=== PATIENT | female | born 1935 | race Two or more races ===

== ENCOUNTER → 2019-09-20 | Outpatient (CLI) | payer MEDICARE, BC ==
[2019-09-20 23:53] LABS: African American GFR (CKD) 53.4 (60.0-200.0); Albumin 3.9 g/dL (3.80-4.90); Albumin/Globulin Ratio 1.5 (1.60-3.17); Anion Gap 8.7 mmol/L (4.00-12.00); BUN/Creat Ratio 25.45 Ratio (12.00-20.00); Calcium 8.8 mg/dL (8.7-10.3); Carbon Dioxide 26.3 mmol/L (21.6-31.8); Globulin 2.6 g/dL (1.6-3.3); LDL Cholesterol,Calculated 25.6 mg/dL (0.0-131.0); Non-African American GFR(CKD) 46.1 (60.0-200.0); Total Bilirubin 1.2 mg/dL (0.3-1.2); Total Protein 6.5 g/dL (6.2-8.2); VLDL Calculation 13.4 mg/dL (5.00-40.00)
== END | disposition home or self-care (01) ==
LOC: LABWHC1 09:37
PROVIDERS: ATTEND Family Medicine
DX: E66.9 Obesity, unspecified (principal); R74.8 Abnormal levels of other serum enzymes
CPT/HCPCS: 36415; 80053; 80061; 82977

== ENCOUNTER → 2019-10-12 | Day surgery (SDC) | payer MEDICARE, BC ==
[2019-10-11 13:06] VITALS: BMI 33.4
[2019-10-12 10:17] VITALS: BP 141/65; PULSE 66; RESP 16; TEMP 97.8
== END ==
LOC: CATHCVL 09:45
PROVIDERS: ATTEND Internal Medicine Infectious Disease
DX: L97.929 Non-pressure chronic ulcer of unspecified part of left lower leg with unspecified severity (principal); I83.029 Varicose veins of left lower extremity with ulcer of unspecified site; Z16.12 Extended spectrum beta lactamase (ESBL) resistance; B96.20 Unspecified Escherichia coli [E. coli] as the cause of diseases classified elsewhere; B95.2 Enterococcus as the cause of diseases classified elsewhere; M19.90 Unspecified osteoarthritis, unspecified site; I11.0 Hypertensive heart disease with heart failure; I50.9 Heart failure, unspecified; E78.5 Hyperlipidemia, unspecified; E66.9 Obesity, unspecified; Z68.33 Body mass index [BMI] 33.0-33.9, adult; Z88.1 Allergy status to other antibiotic agents; Z88.8 Allergy status to other drugs, medicaments and biological substances; Z88.6 Allergy status to analgesic agent; Z79.899 Other long term (current) drug therapy; Z79.02 Long term (current) use of antithrombotics/antiplatelets; Z79.82 Long term (current) use of aspirin; Z79.51 Long term (current) use of inhaled steroids
CPT/HCPCS: 36410; 76937; C1751

== ENCOUNTER → 2019-11-03 | Outpatient (CLI) | payer MEDICARE, BC ==
[2019-11-03 19:31] LABS: African American GFR (CKD) 59.9 (60.0-200.0); Anion Gap 9.7 mmol/L (4.00-12.00); Calcium 8.6 mg/dL (8.7-10.3); Carbon Dioxide 27.3 mmol/L (21.6-31.8); Non-African American GFR(CKD) 51.7 (60.0-200.0)
[2019-11-03 23:22] LABS: INR 1.21 (0.90-1.11); Partial Thromboplastin Time 39.2 sec (24.7-29.9); Prothrombin Time 12.9 sec (9.9-11.9)
== END | disposition home or self-care (01) ==
LOC: LABWHC1 11:08
PROVIDERS: ATTEND Surgery Vascular Surgery
DX: L97.222 Non-pressure chronic ulcer of left calf with fat layer exposed (principal)
CPT/HCPCS: 36415; 80048; 85610; 85730

== ENCOUNTER 2022-11-10 12:24 | Emergency (ER) | payer MEDICARE, BC ==
--- NOTE | 2022-11-10 13:09 | ED ---
Recheck HPI - General Source: patient, RN notes reviewed Mode of arrival: wheelchair Limitations: no limitations <Ben Irving - Last Filed: 11/10/22 13:08> - General Source: patient, RN notes reviewed Mode of arrival: wheelchair Limitations: no limitations <Marlys Haley - Last Filed: 11/10/22 18:43> - General Chief Complaint: Recheck/Abnormal Lab/Rx Stated Complaint: POSS KIDNEY FAILURE/SENT BY PCP Time Seen by Provider: 11/10/22 13:08 - History of Present Illness Initial Comments: 87-year-old female presents emergency Department chief complaint of abnormal kidney function. Patient states she had laboratory drawn yesterday was notified stating that her kidney function was elevated. Patient denies any current complaints. Patient does state that her massage therapist recently placed her on Po tassium supplement. (Ben Irving) 87-year-old male presents to the emergency department with chief complaint of abnormal labs. She was sent in by her primary care provider for abnormal kidney function. She is unsure of the details on these lab values. She states that sh e is otherwise feeling well. Denies urinary retention, urinary frequency, burning with urination. Denies nausea, vomiting. Denies abdominal pain. (Marlys Haley) - Related Data Home Medications Medication Instructions Recorded Confirmed Aspirin 81 mg PO DAILY 10/11/19 11/10/22 Atorvastatin [Lipitor] 40 mg PO DAILY 10/11/19 11/10/22 Cetirizine HCl [Zyrtec] 10 mg PO DAILY PRN 10/11/19 11/10/22 Clopidogrel [Plavix] 75 mg PO DIRECTED 10/11/19 11/10/22 Ferrous Sulfate [Feosol] 325 mg PO DAILY 10/11/19 11/10/22 Fluticasone Nasal [place] [Flonase 1 spr EA NOSTRIL DAILY 10/11/19 11/10/22 Nasal Garrison] Losartan Potassium [Cozaar] 50 mg PO DAILY 10/11/19 11/10/22 Melatonin 5 mg PO HS PRN 10/11/19 11/10/22 Metoprolol Succinate [Toprol XL] 100 mg PO DAILY 10/11/19 11/10/22 Omeprazole [PriLOSEC] 40 mg PO BID 10/11/19 11/10/22 Potassium Chloride ER [K-Dur 20] 20 meq PO DAILY@1200 10/11/19 11/10/22 Bumetanide [BUMEX] 2 mg PO BID 11/10/22 11/10/22 Calcium Carbonate [Calcium] 600 mg PO DAILY 11/10/22 11/10/22 Chlorhexidine Gluconate [Peridex] 15 ml PO BID 11/10/22 11/10/22 calcitrioL [Calcitriol] 0.25 mcg PO Q14D 11/10/22 11/10/22 metOLazone [Zaroxolyn] 2.5 mg PO Q48H 11/10/22 11/10/22 Previous Rx's Medication Instructions Recorded Amoxic-Pot Clav 875-125Mg 1 tab PO Q12HR #10 tab 11/10/22 [Augmentin 875-125] Amoxic-Pot Clav 875-125Mg 1 tab PO Q12HR #10 tab 11/10/22 [Augmentin 875-125] Allergies Allergy/AdvReac Type Severity Reaction Status Date / Time cephalexin [From Keflex] Allergy Unknown Verified 11/10/22 16:50 ciprofloxacin [From Cipro] Allergy Unknown Verified 11/10/22 16:50 clarithromycin [From Biaxin] Allergy Nausea & Verified 11/10/22 16:50 Vomiting & Diarrhea codeine Allergy headache,vo Verified 11/10/22 16:50 miting,inso mnia rofecoxib [From Vioxx] Allergy Rash/Hives Verified 11/10/22 16:50 sulfamethoxazole Allergy Nausea & Verified 11/10/22 16:50 [From Bactrim] Vomiting Thiazides Allergy Unknown Verified 11/10/22 16:50 trimethoprim [From Bactrim] Allergy Nausea & Verified 11/10/22 16:50 Vomiting naldecon Allergy jittery Uncoded 10/11/19 12:31 Review of Systems ROS Other: All systems not noted in ROS Statement are negative. <Ben Irving - Last Filed: 11/10/22 13:08> ROS Other: All systems not noted in ROS Statement are negative. <Marlys Haley - Last Filed: 11/10/22 18:43> ROS Statement: Those systems with pertinent positive or pertinent negative responses have been documented in the HPI. Past Medical History Past Medical History: Atrial Fibrillation, Heart Failure, Deep Vein Thrombosis (DVT), GERD/Reflux, Hyperlipidemia, Hypertension, Myocardial Infarction (IL), Osteoarthritis (OA), Skin Disorder, Vascular Disorder Additional Past Medical History / Comment(s): sore/wound left inner calf of leg for last 2-3 months, fluid retention, "bad valves", DVT in leg >50 yrs. ago after childbirth Last Myocardial Infarction Date:: unknown History of Any Multi-Drug Resistant Organisms: None Reported Past Surgical History: AICD, Appendectomy, Back Surgery, Heart Catheterization With Stent, Hysterectomy, Joint Replacement Additional Past Surgical History / Comment(s): 6 stents total, LAILA, hemorrhoidectomy, vein stripping pedro. CTS pedro, cataracts removed, pedro knees replaced, pedro blepharoplasty Past Anesthesia/Blood Transfusion Reactions: No Reported Reaction, Family History of Problems w/ Anesthesia Additional Past Anesthesia/Blood Transfusion Reaction / Comment(s): sister had some kind of problem, not sure what Date of Last Stent Placement:: 2019 Type of Cardiac Device: AICD Device Placement Date:: 2019 Past Psychological History: No Psychological Hx Reported Smoking Status: Never smoker - Past Family History Mother Family Medical History: Coronary Artery Disease (CAD) <Ben Irving - Last Filed: 11/10/22 13:08> General Exam Limitations: no limitations General appearance: alert, in no apparent distress Head exam: Present: atraumatic, normocephalic, normal inspection <Ben Irving - Last Filed: 11/10/22 13:08> Limitations: no limitations General appearance: alert, in no apparent distress Head exam: Present: atraumatic, normocephalic, normal inspection Eye exam: Present: normal appearance, PERRL, EOMI. Absent: scleral icterus, conjunctival injection, periorbital swelling ENT exam: Present: normal exam, mucous membranes moist Neck exam: Present: normal inspection. Absent: tenderness, meningismus, lymp hadenopathy Respiratory exam: Present: normal lung sounds bilaterally. Absent: respiratory distress, wheezes, rales, rhonchi, stridor Cardiovascular Exam: Present: regular rate GI/Abdominal exam: Present: soft, normal bowel sounds. Absent: distended, tenderness, guarding, rebound, rigid Extremities exam: Present: normal inspection, full ROM, normal capillary refill. Absent: tenderness, pedal edema, joint swelling, calf tenderness Back exam: Present: normal inspection Neurological exam: Present: alert, oriented X3 Psychiatric exam: Present: normal affect, normal mood Skin exam: Present: warm, dry, intact, normal color. Absent: rash <Marlys Haley - Last Filed: 11/10/22 18:43> - General Exam Comments Initial Comments: Visual Physical Exam Vital signs reviewed General: Well-appearing, nontoxic, no acute distress. Head: Normocephalic, atraumatic Eyes: PERRLA, EOMI ENT: Airway patent Chest: Nonlabored breathing Skin: No visual rash, normal skin tone Neuro: Alert and oriented 3 Musculoskeletal: No gross abnormalities (Ben Irivng) Course Vital Signs 11/10/22 11/10/22 11/10/22 12:26 14:52 18:22 Temperature 97.6 F 97.7 F Pulse Rate 79 81 80 Respiratory 18 16 16 Rate Blood Pressure 127/64 128/86 128/82 O2 Sat by Pulse 96 98 98 Oximetry Medical Decision Making <Ben Irving - Last Filed: 11/10/22 13:08> - Lab Data Result diagrams: 11/10/22 14:10 11/10/22 14:53 <Marlys Haley - Last Filed: 11/10/22 18:43> - Medical Decision Making I performed a quick note portion of this chart signed Ben Irving PA-C (Ben Irving) Was pt. sent in by a medical professional or institution ([facility], [employer], urgent care, hospital, or [facility]...) When possible be specific @ -Patient was sent in by her primary care provider for abnormal lab values Did you speak to anyone other than the patient for history (EMS, parent, family, police, friend...)? What history was obtained from this source @ -No Did you review nursing and triage notes (agree or disagree)? Why? @ -I reviewed and agree with nursing and triage notes Were old charts reviewed (outside hosp., previous admission, EMS record, old EKG, old radiological studies, urgent care reports/EKG's, [facility] records)? Report findings @ -No old charts were reviewed Differential Diagnosis (chest pain, altered mental status, abdominal pain women, abdominal pain men, vaginal bleeding, weakness, fever, dyspnea, syncope, headache, dizziness, GI bleed, back pain, seizure, CVA, palpatations, mental health, musculoskeletal)? @ -not applicable EKG interpreted by me (3pts min.). @ -none X-rays interpreted by me (1pt min.). @ -None done CT interpreted by me (1pt min.). @ -None done U/S interpreted by me (1pt. min.). @ -None done What testing was considered but not performed or refused? (CT, X-rays, U/S, labs)? Why? @ -None What meds were considered but not given or refused? Why? @ -None Did you discuss the management of the patient with other professionals (professionals i.e. DrScarlett, PA, [employer], lab, RT, psych nurse, social security benefits interviewer, statistical modeler, teacher, mortgage loan officer, bottle caser)? Give summary @ -No Was smoking cessation discussed for >3mins.? @ -No Was critical care preformed (if so, how long)? @ -No Were there social determinants of health that impacted care today? How? (Homelessness, low income, unemployed, alcoholism, drug addiction, transportation, low edu. Level, literacy, decrease access to med. care, fci, rehab)? @ -No Was there de-escalation of care discussed even if they declined (Discuss DNR or withdrawal of care, Hospice)? DNR status @ -No What co-morbidities impacted this encounter? (DM, HTN, Smoking, COPD, CAD, Cancer, CVA, ARF, Chemo, Hep., AIDS, mental health diagnosis, sleep apnea, morbid obesity)? @ -None Was patient admitted / discharged? Hospital course, mention meds given and route, prescriptions, significant lab abnormalities, going to OR and other pertinent info. @ -discharged. Patient presented to emergency department for chief complaint of abnormal labs. Patient states that she had labs drawn at her primary care providers recently and had abnormal creatinine and BUN. She is unsure of the values of these at that time. She received a call and told her to come to the emergency department. Today her creatinine is 1.82 and her BUN is 75. Labs otherwise unremarkable. Chest x-ray obtained which shows no evidence of acute cardiopulmonary process. Discussed with patient that she should be observation in the hospital overnight for nephrology consult. She states that she follows c losely with the urologist and is refusing to stay in the hospital. Discussed the risks of discharge. She expresses understanding and would still like to be discharged. Discussed with her that she should get her labs checked again in the next 2-3 days and follow up closely with Dr. Riddle. Is stable at time of discharge. Case discussed with my attending, Dr. Bolden. Undiagnosed new problem with uncertain prognosis? @ -No Drug Therapy requiring intensive monitoring for toxicity (Heparin, Nitro, Insulin, Cardizem)? @ -No Were any procedures done? @ -No Diagnosis/symptom? @ -MARIAM Acute, or Chronic, or Acute on Chronic? @ -acute Uncomplicated (without systemic symptoms) or Complicated (systemic symptoms)? @ -uncomplicated Side effects of treatment? @ -No Exacerbation, Progression, or Severe Exacerbation? @ -No Poses a threat to life or bodily function? How? (Chest pain, USA, IL, pneumonia, PE, COPD, DKA, ARF, appy, cholecystitis, CVA, Diverticulitis, Homicidal, Kelly cidal, threat to staff... and all critical care pts) @ -No (Marlys Haley) - Lab Data Lab Results 11/10/22 11/10/22 11/10/22 Range/Units 14:10 14:53 14:53 WBC 4.7 (3.8-10.6) k/uL RBC 4.07 (3.80-5.40) m/uL Hgb 12.5 (11.4-16.0) gm/dL Hct 36.3 (34.0-46.0) % MCV 89.2 (80.0-100.0) fL MCH 30.8 (25.0-35.0) pg MCHC 34.5 (31.0-37.0) g/dL RDW 14.2 (11.5-15.5) % Plt Count 118 L (150-450) k/uL MPV 10.9 Neutrophils % 52 % Lymphocytes % 30 % Monocytes % 11 % Eosinophils % 5 % Basophils % 0 % Neutrophils # 2.5 (1.3-7.7) k/uL Lymphocytes # 1.4 (1.0-4.8) k/uL Monocytes # 0.5 (0-1.0) k/uL Eosinophils # 0.2 (0-0.7) k/uL Basophils # 0.0 (0-0.2) k/uL Sodium 137 (137-145) mmol/L Potassium 3.5 (3.5-5.1) mmol/L Chloride 98 (98-107) mmol/L Carbon Dioxide 30 (22-30) mmol/L Anion Gap 9 mmol/L BUN 75 H (7-17) mg/dL Creatinine 1.82 H (0.52-1.04) mg/dL Est GFR (CKD-EPI)AfAm 28 (>60 ml/min/1.73 sqM) Est GFR (CKD-EPI)NonAf 25 (>60 ml/min/1.73 sqM) Glucose 102 H (74-99) mg/dL Calcium 9.2 (8.4-10.2) mg/dL Magnesium 2.3 (1.6-2.3) mg/dL Total Bilirubin 0.9 (0.2-1.3) mg/dL AST 42 H (14-36) U/L ALT 19 (4-34) U/L Alkaline Phosphatase 85 (38-126) U/L Total Protein 7.1 (6.3-8.2) g/dL Albumin 4.3 (3.5-5.0) g/dL Urine Color Yellow Urine Appearance Clear (Clear) Urine pH 6.0 (5.0-8.0) Ur Specific Sterling 1.015 (1.001-1.035) Urine Protein Negative (Negative) Urine Glucose (UA) Negative (Negative) Urine Ketones Negative (Negative) Urine Blood Negative (Negative) Urine Nitrite Negative (Negative) Urine Bilirubin Negative (Negative) Urine Urobilinogen <2.0 (<2.0) mg/dL Ur Leukocyte Esterase Large H (Negative) Urine RBC <1 (0-5) /hpf Urine WBC 27 H (0-5) /hpf Ur Squamous Epith Cells 2 (0-4) /hpf Disposition <Ben Irving - Last Filed: 11/10/22 13:08> Is patient prescribed a controlled substance at d/c from ED?: No Time of Disposition: 18:01 <Marlys Haley - Last Filed: 11/10/22 18:43> Clinical Impression: UTI (urinary tract infection), MARIAM (acute kidney injury) Disposition: HOME SELF-CARE Condition: Stable Instructions (If sedation given, give patient instructions): Urinary Tract Infection in Women (ED) Additional Instructions: Please follow up with Dr. Riddle this week for lab recheck. Please return to the emergency department for new or worsening symptoms. Prescriptions: Amoxic-Pot Clav 875-125Mg [Augmentin 875-125] 1 tab PO Q12HR #10 tab Amoxic-Pot Clav 875-125Mg [Augmentin 875-125] 1 tab PO Q12HR #10 tab Referrals: Kendall Riddle MD [Primary Care Provider] - 1-2 days
[2022-11-10 14:16] LABS: Basophils % (A) 0 %; Eosinophils # (A) 0.2 k/uL (0-0.7); Eosinophils % (A) 5 %; HCT 36.3 % (34.0-46.0); HGB 12.5 gm/dL (11.4-16.0); Lymphocytes # (A) 1.4 k/uL (1.0-4.8); Lymphocytes % (A) 30 %; MCH 30.8 pg (25.0-35.0); MCHC 34.5 g/dL (31.0-37.0); MCV 89.2 fL (80.0-100.0); Mean Platelet Volume 10.9; Monocytes # (A) 0.5 k/uL (0-1.0); Monocytes % (A) 11 %; Neutrophils # (A) 2.5 k/uL (1.3-7.7); Neutrophils % (A) 52 %; Platelet Count 118 k/uL (150-450); RBC 4.07 m/uL (3.80-5.40); RDW 14.2 % (11.5-15.5); WBC 4.7 k/uL (3.8-10.6)
[2022-11-10 14:58] VITALS: RESP 16
[2022-11-10 15:28] LABS: Appearance,Urine Clear (Clear); Bilirubin,Urine Negative (Negative); Blood,Urine Negative (Negative); Color,Urine Yellow; Glucose,Urine (UA) Negative (Negative); Ketones,Urine Negative (Negative); Leukocyte Esterase,Urine Large (Negative); Nitrite,Urine Negative (Negative); Protein,Urine Negative (Negative); RBC,Urine <1 /hpf (0-5); Specific Gravity,Urine 1.015 (1.001-1.035); Squamous Epithelial Cell,Urine 2 /hpf (0-4); Urobilinogen,Urine <2.0 mg/dL (<2.0); WBC,Urine 27 /hpf (0-5)
[2022-11-10 17:12] LABS: ALT 19 U/L (4-34); AST 42 U/L (14-36); African American GFR (CKD) 28 (>60 ml/min/1.73 sqM); Albumin 4.3 g/dL (3.5-5.0); Alkaline Phosphatase 85 U/L (38-126); Anion Gap 9 mmol/L; Blood Urea Nitrogen 75 mg/dL (7-17); Calcium 9.2 mg/dL (8.4-10.2); Carbon Dioxide 30 mmol/L (22-30); Chloride 98 mmol/L (98-107); Glucose 102 mg/dL (74-99); Magnesium 2.3 mg/dL (1.6-2.3); Non-African American GFR(CKD) 25 (>60 ml/min/1.73 sqM); Potassium 3.5 mmol/L (3.5-5.1); Sodium 137 mmol/L (137-145); Total Bilirubin 0.9 mg/dL (0.2-1.3); Total Protein 7.1 g/dL (6.3-8.2)
--- NOTE | 2022-11-10 17:48 | XR ---
EXAMINATION TYPE: XR chest 2V DATE OF EXAM: 11/10/2022 COMPARISON: NONE HISTORY: Shortness of breath TECHNIQUE: Frontal and lateral views of the chest are obtained. FINDINGS: Scattered senescent parenchymal changes noted. No evidence for infiltrate. No evidence for atelectasis. Heart size is stable. Mediastinal structures are stable and grossly unremarkable. No evidence for hilar prominence. Degenerative changes dorsal spine. IMPRESSION: 1. No evidence for acute pulmonary disease.
[2022-11-10 18:23] VITALS: BP 128/82; PULSE 80; TEMP 97.7
== END 2022-11-10 18:23 | disposition home or self-care (01) ==
LOC: EC 12:24
DX: Z77.120 Contact with and (suspected) exposure to mold (toxic) (principal)
CPT/HCPCS: 36415; 71046; 80053; 81001; 83735; 85025; 87077; 87086; 87186; 99283

== ENCOUNTER 2023-05-24 12:49 | Inpatient (IN) | payer MEDICARE, BC ==
--- NOTE | 2023-05-24 13:00 | ED ---
General Adult HPI - General Chief complaint: Chest Pain Stated complaint: Chest Pain Time Seen by Provider: 05/24/23 12:49 Source: patient, EMS, RN notes reviewed, old records reviewed Mode of arrival: EMS Limitations: no limitations - History of Present Illness Initial comments: This is an 87-year-old female who presents to the emergency department stating that she is having some anterior chest pain she states is the same type of chest pain she had when she had her previous heart attack. Patient states she woke up with the pain and has been ongoing ever since. Patient states that the nitroglycerin did help her little but it is not gone away completely. Patient denies any diaphoresis patient denies shortness of breath patient [place] any radiation of the pain. Patient denies any recent fever chills but she states she has had a cough recently no sputum production. Patient denies headache patient has numbness weakness. - Related Data Home Medications Medication Instructions Recorded Confirmed Aspirin 81 mg PO DAILY 10/11/19 05/24/23 Atorvastatin [Lipitor] 40 mg PO DAILY 10/11/19 05/24/23 Cetirizine HCl [Zyrtec] 10 mg PO DAILY PRN 10/11/19 05/24/23 Clopidogrel [Plavix] 75 mg PO DAILY 10/11/19 05/24/23 Ferrous Sulfate [Feosol] 325 mg PO DAILY 10/11/19 05/24/23 Losartan Potassium [Cozaar] 50 mg PO DAILY 10/11/19 05/24/23 Metoprolol Succinate [Toprol XL] 100 mg PO DAILY 10/11/19 05/24/23 Omeprazole [PriLOSEC] 40 mg PO BID 10/11/19 05/24/23 Bumetanide [BUMEX] 2 mg PO BID 11/10/22 05/24/23 Calcium Carbonate [Calcium] 600 mg PO DAILY 11/10/22 05/24/23 Loratadine [Claritin] 10 mg PO DAILY PRN 05/24/23 05/24/23 Allergies Allergy/AdvReac Type Severity Reaction Status Date / Time cephalexin [From Keflex] Allergy Unknown Verified 05/24/23 14:23 ciprofloxacin [From Cipro] Allergy Unknown Verified 05/24/23 14:23 clarithromycin [From Biaxin] Allergy Nausea & Verified 05/24/23 14:23 Vomiting & Diarrhea codeine Allergy headache,vo Verified 05/24/23 14:23 miting,inso mnia hydrochlorothiazide Allergy Unknown Verified 05/24/23 14:23 [From Dyazide] rofecoxib [From Vioxx] Allergy Rash/Hives Verified 05/24/23 14:23 sulfamethoxazole Allergy Nausea & Verified 05/24/23 14:23 [From Bactrim] Vomiting Thiazides Allergy Unknown Verified 05/24/23 14:23 triamterene [From Dyazide] Allergy Unknown Verified 05/24/23 14:23 trimethoprim [From Bactrim] Allergy Nausea & Verified 05/24/23 14:23 Vomiting naldecon AdvReac jittery Uncoded 05/24/23 14:23 Review of Systems ROS Statement: Those systems with pertinent positive or pertinent negative responses have been documented in the HPI. ROS Other: All systems not noted in ROS Statement are negative. Past Medical History Past Medical History: Atrial Fibrillation, Heart Failure, Deep Vein Thrombosis (DVT), GERD/Reflux, Hyperlipidemia, Hypertension, Myocardial Infarction ([place]), Osteoarthritis (OA), Renal Disease, Skin Disorder, Vascular Disorder Additional Past Medical History / Comment(s): sore/wound left inner calf of leg for last 2-3 months, fluid retention, "bad valves", DVT in leg >50 yrs. ago after childbirth Last Myocardial Infarction Date:: unknown History of Any Multi-Drug Resistant Organisms: None Reported Past Surgical History: AICD, Appendectomy, Back Surgery, Heart Catheterization With Stent, Hysterectomy, Joint Replacement Additional Past Surgical History / Comment(s): 6 stents total, LAILA, hemorrhoidectomy, vein stripping pedro. CTS pedro, cataracts removed, pedro knees replaced, pedro blepharoplasty Past Anesthesia/Blood Transfusion Reactions: No Reported Reaction, Family History of Problems w/ Anesthesia Additional Past Anesthesia/Blood Transfusion Reaction / Comment(s): sister had some kind of problem, not sure what Date of Last Stent Placement:: 2019 Type of Cardiac Device: AICD Device Placement Date:: 2019 Past Psychological History: No Psychological Hx Reported Smoking Status: Never smoker Past Alcohol Use History: None Reported Past Drug Use History: None Reported - Past Family History Mother Family Medical History: Coronary Artery Disease (CAD) General Exam - General Exam Comments Initial Comments: GENERAL: Patient is well-developed and well-nourished. Patient is nontoxic and well- hydrated and is in mild distress. ENT: Neck is soft and supple. No significant lymphadenopathy is noted. Oropharynx is clear. Moist mucous membranes. Neck has full range of motion without eliciting any pain. EYES: The sclera were anicteric and conjunctiva were pink and moist. Extraocular movements were intact and pupils were equal round and reactive to light. Eyelids were unremarkable. PULMONARY: Unlabored respirations. Good breath sounds bilaterally. No audible rales rhonchi or wheezing was noted. CARDIOVASCULAR: There is a regular rate and rhythm without any murmurs gallops or rubs. ABDOMEN: Soft and nontender with normal bowel sounds. SKIN: Skin is clear with no lesions or rashes and otherwise unremarkable. NEUROLOGIC: Patient is alert and oriented x3. Cranial nerves II through XII are grossly intact. Motor and sensory are also intact. Normal speech, volume and content. Symmetrical smile. MUSCULOSKELETAL: Normal extremities with adequate strength and full range of motion. Patient has 1+ edema bilaterally LYMPHATICS: No significant lymphadenopathy is noted PSYCHIATRIC: Normal psychiatric evaluation. Limitations: no limitations Course Vital Signs 05/24/23 05/24/23 12:51 14:10 Temperature 98.1 F Pulse Rate 80 80 Respiratory 20 20 Rate Blood Pressure 168/86 136/89 O2 Sat by Pulse 100 100 Oximetry Medical Decision Making - Medical Decision Making EKG is interpreted by myself but EKG shows electronically ventricular paced rhyt hm at 80 beats a minute QRS is 146 QT interval is 486 QTc is 521. Was pt. sent in by a medical professional or institution ([facility], DROP WIRE OPERATOR, urgent care, hospital, or group home...) When possible be specific @ -No Did you speak to anyone other than the patient for history (EMS, parent, family, police, friend...)? What history was obtained from this source @ -No Did you review nursing and triage notes (agree or disagree)? Why? @ -I reviewed and agree with nursing and triage notes Were old charts reviewed (outside hosp., previous admission, EMS record, old EKG, old radiological studies, urgent care reports/EKG's, group home records)? Report findings @ -I reviewed prior charts and prior lab work on this patient Differential Diagnosis (chest pain, altered mental status, abdominal pain women, abdominal pain men, vaginal bleeding, weakness, fever, dyspnea, syncope, headache, dizziness, GI bleed, back pain, seizure, CVA, palpatations, mental health, musculoskeletal)? @ -Differential Chest Pain: Stable Angina, Unstable Angina, STEMI, NSTEMI Aortic Dissection, Pneumothorax, Musculoskeletal, Esophageal Spasm GERD, Cholecystitis, Pancreatitis, Zoster, this is not meant to be an all-inclusive list. EKG interpreted by me (3pts min.). @ -As above X-rays interpreted by me (1pt min.). @ -Chest x-ray shows no acute abnormality CT interpreted by me (1pt min.). @ -None done U/S interpreted by me (1pt. min.). @ -None done What testing was considered but not performed or refused? (CT, X-rays, U/S, labs)? Why? @ -None What meds were considered but not given or refused? Why? @ -None Did you discuss the management of the patient with other professionals (professionals i.e. , PA, DROP WIRE OPERATOR, lab, RT, psych nurse, social work coordinator, anodize machine operator, teacher, public service officer, rn case manager hospice)? Give summary @ -I spoke with [facility] they agreed admit the patient admit the patient with admitting or psych consult to cardiology Was smoking cessation discussed for >3mins.? @ -No Was critical care preformed (if so, how long)? @ -No Were there social determinants of health that impacted care today? How? (Homelessness, low income, unemployed, alcoholism, drug addiction, transportation, low edu. Level, literacy, decrease access to med. care, fpc, rehab)? @ -No Was there de-escalation of care discussed even if they declined (Discuss DNR or withdrawal of care, Hospice)? DNR status @ -No What co-morbidities impacted this encounter? (DM, HTN, Smoking, COPD, CAD, Cancer, CVA, ARF, Chemo, Hep., AIDS, mental health diagnosis, sleep apnea, morbid obesity)? @ -None Was patient admitted / discharged? Hospital course, mention meds given and route, prescriptions, significant lab abnormalities, going to OR and other pertinent info. @ -Patient had Nitropaste applied and stated that it took away her pain completely. Patient also has influenza A and I started on Tamiflu. I admitted to [facility] on the consult to cardiology Undiagnosed new problem with uncertain prognosis? @ -No Drug Therapy requiring intensive monitoring for toxicity (Heparin, Nitro, Insulin, Cardizem)? @ -No Were any procedures done? @ -No Diagnosis/symptom? @ -Chest pain Acute, or Chronic, or Acute on Chronic? @ -Acute Uncomplicated (without systemic symptoms) or Complicated (systemic symptoms)? @ -Complicated Side effects of treatment? @ -No Exacerbation, Progression, or Severe Exacerbation? @ -No Poses a threat to life or bodily function? How? (Chest pain, [place], [place], pneumonia, PE, COPD, DKA, ARF, appy, cholecystitis, CVA, Diverticulitis, Homicidal, Suicidal, threat to staff... and all critical care pts) @ -Yes this can lead to an [place] and endorgan dysfunction Diagnosis/symptom? @ -Influenza A Acute, or Chronic, or Acute on Chronic? @ -Acute Uncomplicated (without systemic symptoms) or Complicated (systemic symptoms)? @ -Uncomplicated Side effects of treatment? @ -None Exacerbation, Progression, or Severe Exacerbation] @ -No Poses a threat to life or bodily function? @ -No - Lab Data Result diagrams: 05/24/23 13:00 05/24/23 13:31 Lab Results 05/24/23 05/24/23 05/24/23 Range/Units 13:00 13:00 13:00 WBC 5.1 (3.8-10.6) k/uL RBC 3.94 (3.80-5.40) m/uL Hgb 11.6 (11.4-16.0) gm/dL Hct 36.3 (34.0-46.0) % MCV 92.2 (80.0-100.0) fL MCH 29.6 (25.0-35.0) pg MCHC 32.1 (31.0-37.0) g/dL RDW 16.9 H (11.5-15.5) % Plt Count 109 L (150-450) k/uL MPV 11.5 Neutrophils % (Manual) 67 % Lymphocytes % (Manual) 16 % Monocytes % (Manual) 15 % Eosinophils % (Manual) 2 % Neutrophils # (Manual) 3.42 (1.3-7.7) k/uL Lymphocytes # (Manual) 0.82 L (1.0-4.8) k/uL Monocytes # (Manual) 0.77 (0-1.0) k/uL Eosinophils # (Manual) 0.10 (0-0.7) k/uL Nucleated RBCs 0 (0-0) /100 WBC Manual Slide Review Performed Hypochromasia Slight Poikilocytosis Slight Anisocytosis Slight Ovalocytes Present PT 13.3 H (10.0-12.5) sec INR 1.3 H (<1.2) APTT 28.0 (22.0-30.0) sec Sodium (137-145) mmol/L Potassium (3.5-5.1) mmol/L Chloride (98-107) mmol/L Carbon Dioxide (22-30) mmol/L Anion Gap mmol/L BUN (7-17) mg/dL Creatinine (0.52-1.04) mg/dL Est GFR (CKD-EPI)AfAm (>60 ml/min/1.73 sqM) Est GFR (CKD-EPI)NonAf (>60 ml/min/1.73 sqM) Glucose (74-99) mg/dL Calcium (8.4-10.2) mg/dL Magnesium (1.6-2.3) mg/dL Total Bilirubin (0.2-1.3) mg/dL AST (14-36) U/L ALT (4-34) U/L Alkaline Phosphatase (38-126) U/L Troponin I (0.000-0.034) ng/mL Total Protein (6.3-8.2) g/dL Albumin (3.5-5.0) g/dL Influenza Type A (PCR) Detected A (Not Detectd) Influenza Type B (PCR) Not Detected (Not Detectd) RSV (PCR) Not Detected (Not Detectd) SARS-CoV-2 (PCR) Not Detected (Not Detectd) 05/24/23 05/24/23 Range/Units 13:31 13:31 WBC (3.8-10.6) k/uL RBC (3.80-5.40) m/uL Hgb (11.4-16.0) gm/dL Hct (34.0-46.0) % MCV (80.0-100.0) fL MCH (25.0-35.0) pg MCHC (31.0-37.0) g/dL RDW (11.5-15.5) % Plt Count (150-450) k/uL MPV Neutrophils % (Manual) % Lymphocytes % (Manual) % Monocytes % (Manual) % Eosinophils % (Manual) % Neutrophils # (Manual) (1.3-7.7) k/uL Lymphocytes # (Manual) (1.0-4.8) k/uL Monocytes # (Manual) (0-1.0) k/uL Eosinophils # (Manual) (0-0.7) k/uL Nucleated RBCs (0-0) /100 WBC Manual Slide Review Hypochromasia Poikilocytosis Anisocytosis Ovalocytes PT (10.0-12.5) sec INR (<1.2) APTT (22.0-30.0) sec Sodium 140 (137-145) mmol/L Potassium 3.2 L (3.5-5.1) mmol/L Chloride 105 (98-107) mmol/L Carbon Dioxide 25 (22-30) mmol/L Anion Gap 10 mmol/L BUN 21 H (7-17) mg/dL Creatinine 1.04 (0.52-1.04) mg/dL Est GFR (CKD-EPI)AfAm 56 (>60 ml/min/1.73 sqM) Est GFR (CKD-EPI)NonAf 49 (>60 ml/min/1.73 sqM) Glucose 93 (74-99) mg/dL Calcium 8.7 (8.4-10.2) mg/dL Magnesium 1.7 (1.6-2.3) mg/dL Total Bilirubin 2.1 H (0.2-1.3) mg/dL AST 51 H (14-36) U/L ALT 18 (4-34) U/L Alkaline Phosphatase 86 (38-126) U/L Troponin I 0.043 H* (0.000-0.034) ng/mL Total Protein 6.5 (6.3-8.2) g/dL Albumin 3.9 (3.5-5.0) g/dL Influenza Type A (PCR) (Not Detectd) Influenza Type B (PCR) (Not Detectd) RSV (PCR) (Not Detectd) SARS-CoV-2 (PCR) (Not Detectd) Disposition Clinical Impression: Chest pain, Influenza A Disposition: ADMITTED IP TO THIS HOSP Referrals: Kendall Riddle MD [Primary Care Provider] - 1-2 days Time of Disposition: 15:17
[2023-05-24] MEDS: NITROGLYCERIN OINT 1 INCH/GM PACKET TOPICAL STA (13:06)
[2023-05-24 13:11] LABS: Anisocytosis Slight; HCT 36.3 % (34.0-46.0); HGB 11.6 gm/dL (11.4-16.0); Hypochromasia Slight; MCH 29.6 pg (25.0-35.0); MCHC 32.1 g/dL (31.0-37.0); MCV 92.2 fL (80.0-100.0); Mean Platelet Volume 11.5; Platelet Count 109 k/uL (150-450); Poikilocytosis Slight; RBC 3.94 m/uL (3.80-5.40); RDW 16.9 % (11.5-15.5); WBC 5.1 k/uL (3.8-10.6)
--- NOTE | 2023-05-24 13:26 | XR ---
EXAMINATION TYPE: XR chest 2V DATE OF EXAM: 05/24/2023 1:20 PM CLINICAL INDICATION:Female, 87 years old with history of Chest Pain; COMPARISON: Chest radiographs from 11/10/2022 TECHNIQUE: XR chest 2V Frontal and lateral views of the chest. FINDINGS: Lungs/Pleura: There is no evidence of pleural effusion, focal consolidation, or pneumothorax. Pulmonary vascularity: Unremarkable. Heart/mediastinum: Cardiomediastinal silhouette is enlarged and stable. Atherosclerotic calcificatio ns are seen in the aorta. Three lead cardiac conduction device overlying the left hemithorax with dee dee d tips projecting over the right ventricle, right atrium and coronary sinus. Musculoskeletal: No acute osseous pathology. IMPRESSION: Cardiomegaly correlate with serum BNP for congestive heart failure. Otherwise no acute processes defi nitively visualized.
[2023-05-24 13:43] LABS: INR 1.3 (<1.2); Prothrombin Time 13.3 sec (10.0-12.5)
[2023-05-24 13:54] LABS: Lymphocytes # (M) 0.82 k/uL (1.0-4.8); Monocytes # (M) 0.77 k/uL (0-1.0); Neutrophils # (M) 3.42 k/uL (1.3-7.7); Neutrophils % (M) 67 %; Nucleated Red Blood Cells 0 /100 WBC (0-0); Total Cells Counted 100
[2023-05-24 13:56] LABS: Ovalocytes Present
[2023-05-24 14:03] LABS: ALT 18 U/L (4-34); AST 51 U/L (14-36); African American GFR (CKD) 56 (>60 ml/min/1.73 sqM); Albumin 3.9 g/dL (3.5-5.0); Alkaline Phosphatase 86 U/L (38-126); Anion Gap 10 mmol/L; Blood Urea Nitrogen 21 mg/dL (7-17); Calcium 8.7 mg/dL (8.4-10.2); Carbon Dioxide 25 mmol/L (22-30); Chloride 105 mmol/L (98-107); Glucose 93 mg/dL (74-99); Magnesium 1.7 mg/dL (1.6-2.3); Non-African American GFR(CKD) 49 (>60 ml/min/1.73 sqM); Sodium 140 mmol/L (137-145); Total Bilirubin 2.1 mg/dL (0.2-1.3); Total Protein 6.5 g/dL (6.3-8.2)
[2023-05-24 14:17] LABS: Potassium 3.2 mmol/L (3.5-5.1)
[2023-05-24] MEDS ORDERED: OSELTAMIVIR 75 MG CAP PO STA (15:15)
[2023-05-24] MEDS ORDERED: NITROGLYCERIN SL TABS 0.4 MG TAB SUBLINGUAL PRN (15:18)
[2023-05-24] MEDS: OSELTAMIVIR 30 MG CAP PO STA (15:57)
[2023-05-24] MEDS: ACETAMINOPHEN TAB 325 MG TAB PO PRN (18:36)
[2023-05-24] MEDS: NITROGLYCERIN OINT 1 INCH/GM PACKET TOPICAL SCH (18:40)
[2023-05-24] MEDS: ATORVASTATIN 40 MG TAB PO SCH (21:33)
[2023-05-24] MEDS: PANTOPRAZOLE 40 MG TABLET PO SCH (21:33)
[2023-05-24] MEDS: POTASSIUM CHLORIDE ER 20 MEQ TAB.ER PO STA (21:33)
[2023-05-24 23:49] LABS: African American GFR (CKD) 59 (>60 ml/min/1.73 sqM); Anion Gap 9 mmol/L; Blood Urea Nitrogen 22 mg/dL (7-17); Calcium 8.4 mg/dL (8.4-10.2); Carbon Dioxide 24 mmol/L (22-30); Chloride 107 mmol/L (98-107); Glucose 98 mg/dL (74-99); Non-African American GFR(CKD) 51 (>60 ml/min/1.73 sqM); Potassium 3.1 mmol/L (3.5-5.1); Sodium 140 mmol/L (137-145)
[2023-05-25] MEDS ORDERED: Potassium Replacement Protocol 1 EACH MISC MISCELLANE PRN ×2 (00:02→00:18)
--- NOTE | 2023-05-25 00:36 | P.HPIM ---
History of Present Illness H&P Date: 05/24/23 Chief Complaint: Chest pain Patient is a 87-year-old female with a known history of coronary artery disease with stent placement x 6 total, atrial fibrillation not on anticoagulation at home, history of DVT, hypertension, hyperlipidemia, history of [place] and osteoarthritis chronic CHF, status post ICD placement in March 2019 presents to ER with complaints of chest pain. Patient states that she has been having flulike symptoms and significant cough for the past 2 days. Today morning she started having chest discomfort/pain and she woke up from sleep and has been consistent since then. EMS was called and patient was given nitro en route to the ER. Patient states that her pain seems to improve with nitro and was placed on nitro paste placed in the ER. Patient was having cough but without any sputum production.. Mild shortness of breath. No associated nausea or vomiting. No diaphoresis. No radiation of the pain. Denies any fever or chills. Patient does have chronic lower extremity swelling. Chest x-ray showed cardiomegaly correlate with serum BNP for congestive heart failure. Otherwise no acute process definitively visualized. EKG showed electronic ventricular pacemaker. Patient was found to have uncontrolled blood pressure on admission with SBP 16 8/86 and pulse 80 respiration 20 and pulse ox 100% on room air. Laboratory data showed sodium 140 potassium 3.2 chloride 105 bicarbonate 25 BUN 21 creatinine 1.04 Total bili 2.1 AST 51 ALT 18 alk phos 86 Troponin 0.043, 0.048 and 0.062 Influenza A detected. Review of Systems Constitutional: Patient denies any fever or chills . Patient does have generalized weakness. No weight loss. Abdomen: Patient denied nausea vomiting and diarrhea and abdominal pain. Cardiovascular: Patient did complain of chest pain and minimal shortness of breath no palpitations. No worsening leg swelling Respiratory: patient does have cough without sputum production. Minimal shortness of breath Neurologic: Patient denied any numbness or tingling headache. Musculoskeletal: Patient denies any complaints of joint swelling or deformity. Skin: Negative Psychiatric: Negative Endocrine: No heat or cold intolerance. No recent weight gain. Genitourinary: No dysuria or hematuria. All other 14 point ROS negative except the above Past Medical History Past Medical History: Atrial Fibrillation, Heart Failure, Deep Vein Thrombosis (DVT), GERD/Reflux, Hyperlipidemia, Hypertension, Myocardial Infarction ([place]), Osteoarthritis ([place]), Renal Disease, Skin Disorder, Vascular Disorder Additional Past Medical History / Comment(s): sore/wound left inner calf of leg for last 2-3 months, fluid retention, "bad valves", DVT in leg >50 yrs. ago after childbirth Last Myocardial Infarction Date:: unknown History of Any Multi-Drug Resistant Organisms: None Reported Past Surgical History: AICD, Appendectomy, Back Surgery, Heart Catheterization With Stent, Hysterectomy, Joint Replacement Additional Past Surgical History / Comment(s): 6 stents total, LAILA, hemorrhoidectomy, vein stripping pedro. CTS pedro, cataracts removed, pedro knees rep laced, pedro blepharoplasty Past Anesthesia/Blood Transfusion Reactions: No Reported Reaction, Family History of Problems w/ Anesthesia Additional Past Anesthesia/Blood Transfusion Reaction / Comment(s): sister had some kind of problem, not sure what Date of Last Stent Placement:: 2019 Type of Cardiac Device: AICD Device Placement Date:: 2019 Past Psychological History: No Psychological Hx Reported Smoking Status: Never smoker Past Alcohol Use History: None Reported Past Drug Use History: None Reported - Past Family History Mother Family Medical History: Coronary Artery Disease (CAD) Medications and Allergies Home Medications Medication Instructions Recorded Confirmed Type Aspirin 81 mg PO DAILY 10/11/19 05/24/23 History Atorvastatin [Lipitor] 40 mg PO DAILY 10/11/19 05/24/23 History Cetirizine HCl [Zyrtec] 10 mg PO DAILY PRN 10/11/19 05/24/23 History Clopidogrel [Plavix] 75 mg PO DAILY 10/11/19 05/24/23 History Ferrous Sulfate [Feosol] 325 mg PO DAILY 10/11/19 05/24/23 History Losartan Potassium [Cozaar] 50 mg PO DAILY 10/11/19 05/24/23 History Metoprolol Succinate [Toprol XL] 100 mg PO DAILY 10/11/19 05/24/23 History Omeprazole [PriLOSEC] 40 mg PO BID 10/11/19 05/24/23 History Bumetanide [BUMEX] 2 mg PO BID 11/10/22 05/24/23 History Calcium Carbonate [Calcium] 600 mg PO DAILY 11/10/22 05/24/23 History Loratadine [Claritin] 10 mg PO DAILY PRN 05/24/23 05/24/23 History Allergies Allergy/AdvReac Type Severity Reaction Status Date / Time cephalexin [From Keflex] Allergy Unknown Verified 05/24/23 14:23 ciprofloxacin [From Cipro] Allergy Unknown Verified 05/24/23 14:23 clarithromycin [From Biaxin] Allergy Nausea & Verified 05/24/23 14:23 Vomiting & Diarrhea codeine Allergy headache,vo Verified 05/24/23 14:23 miting,inso mnia hydrochlorothiazide Allergy Unknown Verified 05/24/23 14:23 [From Dyazide] rofecoxib [From Vioxx] Allergy Rash/Hives Verified 05/24/23 14:23 sulfamethoxazole Allergy Nausea & Verified 05/24/23 14:23 [From Bactrim] Vomiting Thiazides Allergy Unknown Verified 05/24/23 14:23 triamterene [From Dyazide] Allergy Unknown Verified 05/24/23 14:23 trimethoprim [From Bactrim] Allergy Nausea & Verified 05/24/23 14:23 Vomiting naldecon AdvReac jittery Uncoded 05/24/23 14:23 Physical Exam Vitals: Vital Signs Temp Pulse Resp BP Pulse Ox 05/24/23 19:40 80 15 107/59 98 05/24/23 18:33 97.8 F 80 22 147/82 100 05/24/23 16:03 80 20 161/86 99 05/24/23 14:10 80 20 136/89 100 05/24/23 12:51 98.1 F 80 20 168/86 100 Intake and Output 05/24/23 05/24/23 05/24/23 06:59 14:59 22:59 Other: Weight 72.121 kg PHYSICAL EXAMINATION: Patient is lying in the bed comfortably, no acute distress, awake alert and oriented.. HEENT: Normocephalic. Neck is supple. Pupils reactive. Nostrils clear. Oral cavity is moist. Neck reveals no JVD, carotid bruits, or thyromegaly. CHEST EXAMINATION: Trachea is central. Symmetrical expansion. Bibasilar diminished sounds. No wheezing or rhonchi.. CARDIAC: Normal S1, S2 with no gallops. No murmurs ABDOMEN: Soft. Bowel sounds normal. No organomegaly. No abdominal bruits. Extremities: Bilateral lower extremity 2+ edema. No clubbing or cyanosis Neurologically awake, alert, oriented x3 with well-coordinated movements. No focal deficits noted Skin: No rash or skin lesions. Psychiatric: Coperative. Nonsuicidal Musculoskeletal: No joint swelling or deformity. Normal range of motion. Results CBC & Chem 7: 05/25/23 07:18 05/25/23 07:18 Labs: Abnormal Lab Results - Last 24 Hours (Table) 05/24/23 05/24/23 05/24/23 Range/Units 13:00 13:00 13:00 RDW 16.9 H (11.5-15.5) % Plt Count 109 L (150-450) k/uL Lymphocytes # (Manual) 0.82 L (1.0-4.8) k/uL PT 13.3 H (10.0-12.5) sec INR 1.3 H (<1.2) Potassium (3.5-5.1) mmol/L BUN (7-17) mg/dL Total Bilirubin (0.2-1.3) mg/dL AST (14-36) U/L Troponin I (0.000-0.034) ng/mL Influenza Type A (PCR) Detected A (Not Detectd) 05/24/23 05/24/23 05/24/23 Range/Units 13:31 13:31 16:02 RDW (11.5-15.5) % Plt Count (150-450) k/uL Lymphocytes # (Manual) (1.0-4.8) k/uL PT (10.0-12.5) sec INR (<1.2) Potassium 3.2 L (3.5-5.1) mmol/L BUN 21 H (7-17) mg/dL Total Bilirubin 2.1 H (0.2-1.3) mg/dL AST 51 H (14-36) U/L Troponin I 0.043 H* 0.048 H* (0.000-0.034) ng/mL Influenza Type A (PCR) (Not Detectd) Thrombosis Risk Factor Assmnt - DVT/VTE Prophylaxis DVT/VTE Prophylaxis: Pharmacologic Prophylaxis ordered Assessment and Plan Assessment: Acute influenza A infection Chest pain along with elevated troponin level. Possible NSTEMI Uncontrolled hypertension Coronary artery disease history of prior stent placement x 6 total Chronic CHF with likely systolic dysfunction. Status post ICD placed in 2019 Hyperlipidemia History of DVT Osteoarthritis DVT prophylaxis heparin subcu GI prophylaxis with PPI Plan: Patient will be continued on telemetry. Follow-up serial EKG and troponin x 3. Will be started back on aspirin Plavix and atorvastatin Patient was started back on metoprolol and monitor blood pressure closely. Continue with Bumex as per home regimen. Symptomatic management for cough. Patient was also started on Tamiflu 30 mg daily x 5 doses Replace electrolytes. Cardiology was consulted for further evaluation. Prognosis guarded nephrology medical problems and comorbid conditions. Discussed with patient family in detail at bedside. Time with Patient: Greater than 30
[2023-05-25] MEDS: POTASSIUM CHLORIDE ER 20 MEQ TAB.ER PO SCH (01:01)
[2023-05-25 08:23] LABS: Anisocytosis Slight; Basophils % (A) 1 %; Eosinophils # (A) 0.1 k/uL (0-0.7); Eosinophils % (A) 2 %; HCT 35.3 % (34.0-46.0); HGB 11.4 gm/dL (11.4-16.0); Hypochromasia Slight; Lymphocytes % (A) 19 %; MCH 30.2 pg (25.0-35.0); MCHC 32.1 g/dL (31.0-37.0); Monocytes # (A) 0.6 k/uL (0-1.0); Monocytes % (A) 11 %; Neutrophils # (A) 3.3 k/uL (1.3-7.7); Neutrophils % (A) 64 %; RBC 3.76 m/uL (3.80-5.40); RDW 17.1 % (11.5-15.5); WBC 5.1 k/uL (3.8-10.6)
[2023-05-25 08:49] LABS: African American GFR (CKD) 57 (>60 ml/min/1.73 sqM); Anion Gap 9 mmol/L; Blood Urea Nitrogen 21 mg/dL (7-17); Calcium 8.9 mg/dL (8.4-10.2); Carbon Dioxide 26 mmol/L (22-30); Chloride 107 mmol/L (98-107); Glucose 93 mg/dL (74-99); Non-African American GFR(CKD) 50 (>60 ml/min/1.73 sqM); Potassium 3.8 mmol/L (3.5-5.1); Sodium 142 mmol/L (137-145)
[2023-05-25 08:54] LABS: NT-Pro-B-Type Natriuretic Pept 7080 pg/mL
[2023-05-25] MEDS ORDERED: POTASSIUM CHLORIDE ER 20 MEQ TAB.ER PO SCH ×2 (09:00→23:59)
[2023-05-25] MEDS ORDERED: ASPIRIN 325 MG TAB PO SCH (09:00)
[2023-05-25] MEDS: ASPIRIN 81 MG PO SCH (09:29)
[2023-05-25] MEDS: LOSARTAN 50 MG TAB PO SCH (09:30)
[2023-05-25] MEDS: OSELTAMIVIR 30 MG CAP PO SCH (09:30)
[2023-05-25] MEDS: METOPROLOL SUCCINATE (ER) 100 MG TAB.ER.24H PO SCH (09:30)
[2023-05-25] MEDS: BUMETANIDE 1 MG TAB PO SCH (09:30)
[2023-05-25] MEDS: CLOPIDOGREL 75 MG TAB PO SCH (09:30)
--- NOTE | 2023-05-25 10:22 | P.CRDCN ---
History of Present Illness Consult date: 05/25/23 Consult reason: chest pain History of present illness: History of present illness: This is an 87-year-old female with past medical history of atrial fibrillation, bicuspid aortic valve, chronic systolic heart failure status post AICD 2019, history of myocardial infarction, coronary artery disease with previous stenting (7stents per patient), DVT, gastroesophageal reflux disease, hypertension, hyperlipidemia. Patient has follow-up with Dr. Byrne at [facility] but due to driving distance, she has made appointment with Dr. Geronimo on June 14. We have been asked to evaluate the patient for chest pain. On Wednesday, patient developed cough that was dry but it continued to worsen over the weekend and was significantly worse yesterday. She also did not feel right. She developed some nausea and dry heaves. She has chronic dyspnea on exertion which was worsened. She has right lower extremity edema. No dizziness, no palpitations, she states she had the chest pain just above the defibrillator. It seemed to be a different chest pain that she had with her previous WI/stents. No change in her pain with deep breathing or coughing. She states it was a steady ache but is gone now. She has had no fever. No blood in her stools or urine. No history of stroke or seizures. No history of diabetes. She is not a smoker. Patient is seen today in the emergency center waiting for bed on the cardiac stepdown unit. Patient has been started on Tamiflu, isolation and potassium has been replaced. EKG ventricularly paced rhythm, sinus rhythm Chest x-ray: Cardiomegaly correlate for CHF. Otherwise no acute process. Platelet count 109, WBC 5.1, hemoglobin 11.6. INR 1.3. Sodium 140, potassium 3.1, chloride 107, CO2 24, BUN 22 creatinine 1. Total bilirubin 2.1, AST 51, ALT and alkaline phosphatase normal. Magnesium 1.7. Troponin 0.043, 0.048, 0.062. Influenza A detected. Influenza B, RSV, COVID-19 not detected. Home cardiac medications: Aspirin 81 mg daily, atorvastatin 40 mg daily, Bumex 2 mg twice daily, Plavix 75 mg daily, losartan 50 mg daily, Toprol-XL 100 mg daily. Review Of Systems: At the time of my exam: CONSTITUTIONAL: Denies fever or chills. HEENT: Denies blurred vision, vision changes, or eye pain. Denies hemoptysis CARDIOVASCULAR: Denies chest pain. Denies orthopnea. Denies PND. Denies palpitations RESPIRATORY: Denies shortness of breath. GASTROINTESTINAL: Denies abdominal pain. Denies nausea or vomiting. HEMATOLOGIC: Denies bleeding disorders. GENITOURINARY: Denies any blood in urine. SKIN: Denies pruitis. Denies rash. Physical examination: Gen: This is an 87-year-old female in no acute respiratory distress VS: reviewed blood pressure 178/86, heart rate 80, pulse ox 100% on 2 L nasal cannula, afebrile. HEENT: Head is atraumatic, normocephalic. Pupils equal, round. Sclerae is anicteric. NECK: Supple. No JVD. LUNGS: Mild expiratory wheeze. No intercostal retractions. HEART: Regular rate and rhythm. Systolic murmur. ABDOMEN: Soft No tenderness. EXTREMITIES: Mild bilateral pedal edema more so on the right. Varicose veins in the right. No calf tenderness. NEUROLOGICAL: Patient is awake, alert and oriented x3. Assessment: Influenza A Chronic systolic heart failure Elevated troponin most likely due to influenza A History of coronary artery disease with previous stenting Hypertension Hyperlipidemia Status post AICD Remote history of DVT Plan: Resume patient's home cardiac medications Continue influenza treatment Obtain 2-D echocardiogram and Doppler study to assess cardiac structure and function Obtain patient records from Dr. Byrne Further recommendations to follow based upon clinical course Thank you kindly for this consultation. Nurse practitioner note has been reviewed, I agree with documented findings and plan of care. Patient was seen and examined. Past Medical History Past Medical History: Atrial Fibrillation, Heart Failure, Deep Vein Thrombosis (DVT), GERD/Reflux, Hyperlipidemia, Hypertension, Myocardial Infarction ([place]), Osteoarthritis (OA), Renal Disease, Skin Disorder, Vascular Disorder Additional Past Medical History / Comment(s): sore/wound left inner calf of leg for last 2-3 months, fluid retention, "bad valves", DVT in leg >50 yrs. ago after childbirth Last Myocardial Infarction Date:: unknown History of Any Multi-Drug Resistant Organisms: None Reported Past Surgical History: AICD, Appendectomy, Back Surgery, Heart Catheterization With Stent, Hysterectomy, Joint Replacement Additional Past Surgical History / Comment(s): 6 stents total, LAILA, hemorrhoidectomy, vein stripping pedro. CTS pedro, cataracts removed, pedro knees replaced, pedro blepharoplasty Past Anesthesia/Blood Transfusion Reactions: No Reported Reaction, Family History of Problems w/ Anesthesia Additional Past Anesthesia/Blood Transfusion Reaction / Comment(s): sister had some kind of problem, not sure what Date of Last Stent Placement:: 2019 Type of Cardiac Device: AICD Device Placement Date:: 2019 Past Psychological History: No Psychological Hx Reported Smoking Status: Never smoker Past Alcohol Use History: None Reported Past Drug Use History: None Reported - Past Family History Mother Family Medical History: Coronary Artery Disease (CAD) Medications and Allergies Home Medications Medication Instructions Recorded Confirmed Type Aspirin 81 mg PO DAILY 10/11/19 05/24/23 History Atorvastatin [Lipitor] 40 mg PO DAILY 10/11/19 05/24/23 History Cetirizine HCl [Zyrtec] 10 mg PO DAILY PRN 10/11/19 05/24/23 History Clopidogrel [Plavix] 75 mg PO DAILY 10/11/19 05/24/23 History Ferrous Sulfate [Feosol] 325 mg PO DAILY 10/11/19 05/24/23 History Losartan Potassium [Cozaar] 50 mg PO DAILY 10/11/19 05/24/23 History Metoprolol Succinate [Toprol XL] 100 mg PO DAILY 10/11/19 05/24/23 History Omeprazole [PriLOSEC] 40 mg PO BID 10/11/19 05/24/23 History Bumetanide [BUMEX] 2 mg PO BID 11/10/22 05/24/23 History Calcium Carbonate [Calcium] 600 mg PO DAILY 11/10/22 05/24/23 History Loratadine [Claritin] 10 mg PO DAILY PRN 05/24/23 05/24/23 History Allergies Allergy/AdvReac Type Severity Reaction Status Date / Time cephalexin [From Keflex] Allergy Unknown Verified 05/24/23 14:23 ciprofloxacin [From Cipro] Allergy Unknown Verified 05/24/23 14:23 clarithromycin [From Biaxin] Allergy Nausea & Verified 05/24/23 14:23 Vomiting & Diarrhea codeine Allergy headache,vo Verified 05/24/23 14:23 miting,inso mnia hydrochlorothiazide Allergy Unknown Verified 05/24/23 14:23 [From Dyazide] rofecoxib [From Vioxx] Allergy Rash/Hives Verified 05/24/23 14:23 sulfamethoxazole Allergy Nausea & Verified 05/24/23 14:23 [From Bactrim] Vomiting Thiazides Allergy Unknown Verified 05/24/23 14:23 triamterene [From Dyazide] Allergy Unknown Verified 05/24/23 14:23 trimethoprim [From Bactrim] Allergy Nausea & Verified 05/24/23 14:23 Vomiting naldecon AdvReac jittery Uncoded 05/24/23 14:23 Physical Exam Vitals: Vital Signs Temp Pulse Pulse Resp BP BP Pulse Ox 05/25/23 07:28 98.0 F 80 20 178/86 100 05/25/23 03:06 98 F 81 14 132/92 100 05/24/23 22:43 97.8 F 80 14 144/79 95 05/24/23 19:40 80 15 107/59 98 05/24/23 18:33 97.8 F 80 22 147/82 100 05/24/23 16:03 80 20 161/86 99 05/24/23 14:10 80 20 136/89 100 05/24/23 12:51 98.1 F 80 20 168/86 100 Intake and Output 05/24/23 05/25/23 05/25/23 22:59 06:59 14:59 Other: # Voids 1 # Bowel Movements 1 Results 05/25/23 07:18 05/25/23 07:18 Cardiac Enzymes 05/24/23 05/24/23 05/24/23 Range/Units 13:31 13:31 16:02 AST 51 H (14-36) U/L Troponin I 0.043 H* 0.048 H* (0.000-0.034) ng/mL 05/24/23 Range/Units 20:21 AST (14-36) U/L Troponin I 0.062 H* (0.000-0.034) ng/mL Coagulation 05/24/23 Range/Units 13:00 PT 13.3 H (10.0-12.5) sec APTT 28.0 (22.0-30.0) sec CBC 05/24/23 Range/Units 13:00 WBC 5.1 (3.8-10.6) k/uL RBC 3.94 (3.80-5.40) m/uL Hgb 11.6 (11.4-16.0) gm/dL Hct 36.3 (34.0-46.0) % Plt Count 109 L (150-450) k/uL Comprehensive Metabolic Panel 05/24/23 05/24/23 Range/Units 13:31 22:58 Sodium 140 140 (137-145) mmol/L Potassium 3.2 L 3.1 L (3.5-5.1) mmol/L Chloride 105 107 (98-107) mmol/L Carbon Dioxide 25 24 (22-30) mmol/L BUN 21 H 22 H (7-17) mg/dL Creatinine 1.04 1.00 (0.52-1.04) mg/dL Glucose 93 98 (74-99) mg/dL Calcium 8.7 8.4 (8.4-10.2) mg/dL AST 51 H (14-36) U/L ALT 18 (4-34) U/L Alkaline Phosphatase 86 (38-126) U/L Total Protein 6.5 (6.3-8.2) g/dL Albumin 3.9 (3.5-5.0) g/dL Current Medications Generic Name Dose Route Start Last Admin Trade Name Freq PRN Reason Stop Dose Admin Acetaminophen 650 mg 05/24/23 17:57 05/24/23 18:36 Acetaminophen Tab 325 Mg Tab PO 650 mg Q4HR PRN Administration Fever and/ or Pain Aspirin 325 mg 05/25/23 09:00 Aspirin 325 Mg Tab PO DAILY [facility] Aspirin 81 mg 05/25/23 09:00 Aspirin 81 Mg PO DAILY [facility] Atorvastatin Calcium 40 mg 05/24/23 21:30 05/24/23 21:33 Atorvastatin 40 Mg Tab PO 40 mg HS PAUL Administration Clopidogrel Bisulfate 75 mg 05/25/23 09:00 Clopidogrel 75 Mg Tab PO DAILY [facility] Metoprolol Succinate 100 mg 05/25/23 09:00 Metoprolol Succinate (Er) 100 Mg Tab.Er.24h PO DAILY [facility] Miscellaneous Information 1 each 05/25/23 00:02 Potassium Replacement Protocol 1 Each Misc MISCELLANE DAILY PRN Per Protocol Protocol Miscellaneous Information 1 each 05/25/23 00:18 Potassium Replacement Protocol 1 Each Misc MISCELLANE DAILY PRN Per Protocol Protocol Nitroglycerin 0.4 mg 05/24/23 15:18 Nitroglycerin Sl Tabs 0.4 Mg Tab SUBLINGUAL Q5M PRN Chest Pain Nitroglycerin 1 inch 05/24/23 18:00 05/25/23 06:15 Nitroglycerin Oint 1 Inch/Gm Packet TOPICAL Not Given Q6HR PAUL Oseltamivir Phosphate 30 mg 05/25/23 09:00 Oseltamivir 30 Mg Cap PO 05/28/23 09:01 DAILY PAUL Protocol Pantoprazole Sodium 40 mg 05/24/23 21:30 05/25/23 06:00 Pantoprazole 40 Mg Tablet PO Not Given AC-BID [facility] Intake and Output 05/24/23 05/25/23 05/25/23 22:59 06:59 14:59 Other: # Voids 1 # Bowel Movements 1 05/24/23 13:00 05/24/23 22:58
[2023-05-25 11:09] LABS: Poikilocytosis (M) Present
[2023-05-25 11:10] LABS: Platelet Count 96 k/uL (150-450)
[2023-05-25] MEDS: guaiFENesin SYRUP 100MG/5ML 200 MG/10 ML CUP PO PRN (14:37)
[2023-05-25 21:06] LABS: Chol/HDL Ratio 1.91 Ratio; LDL Cholesterol,Calculated 21.3 mg/dL (0.0-131.0)
--- NOTE | 2023-05-26 09:00 | CA ---
Transthoracic Echo Report Name: Hetal Rod Age: 87 Gender: F : 1935 Exam Date: 05/25/2023 11:03 Exam Location: [facility] Ht (in): 60 Wt (lb): 159 Ordering Physician: Lisa Bose Attending/Referring Phys: [id number], Lidya [place] Operator Florence Whiteside RDCS Procedure CPT: Indications: LVF Cardiac Hx: Technical Quality: Contrast 1: Total Dose (mL): Contrast 2: Total Dose (mL): MEASUREMENTS (Male / Female) Normal Values 2D ECHO LV Diastolic Diameter PLAX 3.6 cm 4.2 - 5.9 / 3.9 - 5.3 cm LV Systolic Diameter PLAX 2.7 cm IVS Diastolic Thickness 1.2 cm 0.6 - 1.0 / 0.6 - 0.9 cm LVPW Diastolic Thickness 1.3 cm 0.6 - 1.0 / 0.6 - 0.9 cm LV Relative Wall Thickness 0.7 LVOT Diameter 1.8 cm Aortic Root Diameter 2.7 cm LA Systolic Diameter LX 4.1 cm 3.0 - 4.0 / 2.7 - 3.8 cm LA Volume 81.7 cm??? 18 - 58 / 22 - 52 cm??? LA Volume Index 46.0 cm???/m??? 16 - 28 cm???/m??? DOPPLER AV Peak Velocity 134.7 cm/s AV Peak Gradient 7.3 mmHg AV Mean Velocity 90.8 cm/s AV Mean Gradient 3.5 mmHg AV Velocity Time Integral 22.6 cm LVOT Peak Velocity 46.0 cm/s LVOT Peak Gradient 0.8 mmHg LVOT Velocity Time Integral 7.3 cm LVOT Stroke Volume 19.1 cm??? LVOT Stroke Volume Index 11.3 ml/m??? LVOT Cardiac Index 857.9 cm???/min???m??? AV Area Cont Eq vti 0.8 cm??? AV Area Cont Eq pk 0.9 cm??? MV Area PHT 4.4 cm??? MR Peak Velocity 549.0 cm/s MR Peak Gradient 120.6 mmHg Mitral E Point Velocity 141.3 cm/s Mitral A Point Velocity 45.9 cm/s Mitral E to A Ratio 3.1 MV Deceleration Time 170.8 ms MV E' Velocity 6.4 cm/s Mitral E to MV E' Ratio 22.1 TR Peak Velocity 284.3 cm/s TR Peak Gradient 32.3 mmHg Right Ventricular Systolic Press 50.8 mmHg PV Peak Velocity 55.4 cm/s PV Peak Gradient 1.2 mmHg FINDINGS Left Ventricle Mildly increased septal wall thickness. Mild concentric left ventricular hypertrophy. Left ventricular ejection fraction is estimated at 30-35 %. Right Ventricle Right ventricular dilatation. Right ventricular systolic pressure estimated at 59.76 mmhg. Right Atrium Pacemaker wire in the right atrial cavity. Left Atrium Mildly increased left atrial diameter. Severely increased left atrial volume. Mitral Valve Moderate to severe mitral regurgitation. Aortic Valve Trileaflet aortic valve. Thickened aortic valve without stenosis. Tricuspid Valve Moderate to severe tricuspid regurgitation Pulmonic Valve No pulmonic regurgitation. Pericardium No pericardial effusion. Aorta Normal size aortic root. CONCLUSIONS Technically difficult study was poorly visualized endocardium The LV systolic function is estimated to be 30-35% Moderate to severe mitral regurgitation Severe pulmonary hypertension Severe right ventricular dilation Moderate to severe tricuspid regurgitation Previewed by: Dr. Krish Geronimo MD (Electronically Signed) Final Date: 26 May 2023 08:59
[2023-05-26 09:54] LABS: Anisocytosis Slight; Basophils % (A) 1 %; Eosinophils # (A) 0.2 k/uL (0-0.7); Eosinophils % (A) 5 %; Hypochromasia Slight; Lymphocytes # (A) 1.1 k/uL (1.0-4.8); Lymphocytes % (A) 33 %; MCH 30.4 pg (25.0-35.0); MCHC 32.4 g/dL (31.0-37.0); MCV 93.9 fL (80.0-100.0); Mean Platelet Volume 10.3; Monocytes # (A) 0.4 k/uL (0-1.0); Monocytes % (A) 12 %; Neutrophils # (A) 1.6 k/uL (1.3-7.7); Neutrophils % (A) 46 %; RBC 3.62 m/uL (3.80-5.40); RDW 17.1 % (11.5-15.5); WBC 3.5 k/uL (3.8-10.6)
[2023-05-26 10:05] LABS: African American GFR (CKD) 49 (>60 ml/min/1.73 sqM); Anion Gap 9 mmol/L; Blood Urea Nitrogen 24 mg/dL (7-17); Calcium 8.5 mg/dL (8.4-10.2); Carbon Dioxide 26 mmol/L (22-30); Chloride 106 mmol/L (98-107); Glucose 125 mg/dL (74-99); Non-African American GFR(CKD) 43 (>60 ml/min/1.73 sqM); Potassium 3.1 mmol/L (3.5-5.1); Sodium 141 mmol/L (137-145)
[2023-05-26 10:16] LABS: Platelet Count 89 k/uL (150-450)
[2023-05-26] MEDS ORDERED: Potassium Replacement Protocol 1 EACH MISC MISCELLANE PRN (10:16)
--- NOTE | 2023-05-26 10:41 | P.PN ---
Subjective Progress Note Date: 05/26/23 Consult reason: chest pain History of present illness: This is an 87-year-old female with past medical history of atrial fibrillation, bicuspid aortic valve, chronic systolic heart failure status post AICD 2019, history of myocardial infarction, coronary artery disease with previous stenting (7stents per patient), DVT, gastroesophageal reflux disease, hypertension, hyperlipidemia. Patient has follow-up with Dr. Byrne at [facility] but due to driving distance, she has made appointment with Dr. Geronimo on June 14. We have been asked to evaluate the patient for chest pain. On Wednesday, patient developed cough that was dry but it continued to worsen over the weekend and was significantly worse yesterday. She also did not feel right. She developed some nausea and dry heaves. She has chronic dyspnea on exertion which was worsened. She has right lower extremity edema. No dizziness, no palpitations, she states she had the chest pain just above the defibrillator. It seemed to be a different chest pain that she had with her previous ME/stents. No change in her pain with deep breathing or coughing. She states it was a steady ache but is gone now. She has had no fever. No blood in her stools or urine. No history of stroke or seizures. No history of diabetes. She is not a smoker. Patient is seen today in the emergency center waiting for bed on the cardiac stepdown unit. Patient has been started on Tamiflu, isolation and potassium has been replaced. EKG ventricularly paced rhythm, sinus rhythm Chest x-ray: Cardiomegaly correlate for CHF. Otherwise no acute process. Platelet count 109, WBC 5.1, hemoglobin 11.6. INR 1.3. Sodium 140, potassium 3.1, chloride 107, CO2 24, BUN 22 creatinine 1. Total bilirubin 2.1, AST 51, ALT and alkaline phosphatase normal. Magnesium 1.7. Troponin 0.043, 0.048, 0.062. Influenza A detected. Influenza B, RSV, COVID-19 not detected. Home cardiac medications: Aspirin 81 mg daily, atorvastatin 40 mg daily, Bumex 2 mg twice daily, Plavix 75 mg daily, losartan 50 mg daily, Toprol-XL 100 mg daily. 05/25 Reviewed documents obtained from [facility], Dr. Vivek Byrne. Patient has a past medical history of chronic systolic and diastolic heart failure with LVEF 40%, moderate mitral regurgitation, severe tricuspid regurgitation, status post ICD on 04/18/2019 for secondary prevention of SCD with long QT. ICD was complicated by pericardial tamponade, effusion was drained. She has history of persistent A-fib with [id number] of 5. History of severe GI bleeding on Coumadin. Patient has not been interested in LAAO. History of coronary artery disease with stenting of the LAD and RCA at [facility] in 2005 followed by stenting of the RCA at [facility] in 2012, stenting of the RCA, PTCA diagonal at [facility] 08/21/2019. History of peripheral artery disease with CYNTHIA left SFA for nonhealing left calf ulcer 12/01/2019. Patient is seen today on the cardiac stepdown unit. She denies having any chest pain, no shortness of breath, no dizziness. She is complaining with cough and sputum production. Blood pressure 139 over 100% on 4 L nasal cannula. Repeat blood work today reveals BUN 24 creatinine 1.16, potassium 3.1, sodium 141. Echocardiogram reveals EF of 30 to 35%, moderate to severe mitral regurgitation, severe pulmonary hypertension, severe right ventricular dilation, moderate to severe tricuspid regurgitation. Physical examination: Gen: This is an 87-year-old female in no acute respiratory distress VS: reviewed blood pressure 178/86, heart rate 80, pulse ox 100% on 2 L nasal cannula, afebrile. HEENT: Head is atraumatic, normocephalic. Pupils equal, round. Sclerae is anicteric. NECK: Supple. No JVD. LUNGS: Mild expiratory wheeze. No intercostal retractions. HEART: Regular rate and rhythm. Holosystolic murmur with radiation to the neck ABDOMEN: Soft No tenderness. EXTREMITIES: Mild bilateral pedal edema more so on the right. Varicose veins in the right. No calf tenderness. NEUROLOGICAL: Patient is awake, alert and oriented x3. Assessment: Influenza A Chronic systolic and diastolic heart failure Elevated troponin most likely due to influenza A History of coronary artery disease with previous stenting Hypertension Hyperlipidemia Valvular heart disease with moderate to severe mitral regurgitation, moderate to severe tricuspid regurgitation Persistent atrial fibrillation History of severe GI bleeding on Coumadin Status post AICD Remote history of DVT Peripheral vascular disease Plan: Continue patient's home cardiac medications Continue influenza treatment Further recommendations to follow based upon clinical course Thank you kindly for this consultation. Nurse practitioner note has been reviewed, I agree with documented findings and plan of care. Patient was seen and examined. Objective - Vital Signs Vital signs: Vital Signs Temp 97.6 F 05/26/23 03:40 Pulse 80 05/26/23 08:00 Resp 20 05/26/23 08:00 BP 139/68 05/26/23 08:00 Pulse Ox 100 05/26/23 08:00 FiO2 Intake & Output 05/25/23 05/26/23 05/26/23 18:59 06:59 18:59 Intake Total 180 180 Balance 180 180 Weight 72.121 kg Intake: Oral 180 180 Other: Voiding Method Toilet Toilet # Voids 2 - Labs CBC & Chem 7: 05/25/23 07:18 05/25/23 07:18 Labs: Abnormal Lab Results - Last 24 Hours (Table) 05/25/23 05/25/23 Range/Units 07:18 07:18 RBC 3.76 L (3.80-5.40) m/uL RDW 17.1 H (11.5-15.5) % Plt Count 96 L (150-450) k/uL BUN 21 H (7-17) mg/dL
--- NOTE | 2023-05-26 10:53 | P.PN ---
Subjective Progress Note Date: 05/25/23 Patient is a 87-year-old female with a known history of coronary artery disease with stent placement x 6 total, atrial fibrillation not on anticoagulation at home, history of DVT, hypertension, hyperlipidemia, history of PR and osteoarthritis chronic CHF, status post ICD placement in March 2019 presents to ER with complaints of chest pain. Patient states that she has been having flulike symptoms and significant cough for the past 2 days. Today morning she started having chest discomfort/pain and she woke up from sleep and has been consistent since then. EMS was called and patient was given nitro en route to the ER. Patient states that her pain seems to improve with nitro and was placed on nitro paste placed in the ER. Patient was having cough but without any sputum production.. Mild shortness of breath. No associated nausea or vomiting. No diaphoresis. No radiation of the pain. Denies any fever or chills. Patient does have chronic lower extremity swelling. Chest x-ray showed cardiomegaly correlate with serum BNP for congestive heart failure. Otherwise no acute process definitively visualized. EKG showed electronic ventricular pacemaker. Patient was found to have uncontrolled blood pressure on admission with SBP 168/86 and pulse 80 respiration 20 and pulse ox 100% on room air. Laboratory data showed sodium 140 potassium 3.2 chloride 105 bicarbonate 25 BUN 21 creatinine 1.04 Total bili 2.1 AST 51 ALT 18 alk phos 86 Troponin 0.043, 0.048 and 0.062 Influenza A detected. 3 2023 Patient is currently resting in the bed. Awake alert and oriented x 3. No complaints of chest pain. Breathing status is better. Patient is on 4 L oxygen via nasal cannula. No nausea vomiting abdominal pain or diarrhea. Patient has been afebrile. Blood pressure is elevated with SBP's in 170s this morning. Patient is being continued Bumex and losartan and metoprolol. Also on Tamiflu. 2D echocardiogram was done and awaiting reports from other hospital. Cardiology is on board. Laboratory data showed WBC 5.1 hemoglobin 11.4 and platelets 96 Sodium 142 potassium 3.8 chloride 107 bicarb is 26 BUN 21 and creatinine 1.02 and [place] Elevated LDL 21.3 and proBNP 7080. Current medications reviewed. Objective - Vital Signs Vital signs: Vital Signs Temp 98.9 F 05/25/23 16:40 Pulse 74 05/25/23 16:40 Resp 18 05/25/23 16:40 BP 147/74 05/25/23 16:40 Pulse Ox 100 05/25/23 16:40 FiO2 Intake & Output 05/25/23 05/25/23 05/26/23 06:59 18:59 06:59 Intake Total 180 Balance 180 Weight 72.121 kg Intake: Oral 180 Other: Voiding Method Toilet # Voids 1 # Bowel Movements 1 - Exam PHYSICAL EXAMINATION: Patient is lying in the bed comfortably, no acute distress, awake alert and oriented.. HEENT: Normocephalic. Neck is supple. Pupils reactive. Nostrils clear. Oral cavity is moist. Neck reveals no JVD, carotid bruits, or thyromegaly. CHEST EXAMINATION: Trachea is central. Symmetrical expansion. No wheezing or rhonchi. Nonlabored breathing. CARDIAC: Normal S1, S2 with no gallops. Systolic murmur. ABDOMEN: Soft. Bowel sounds normal. No organomegaly. No abdominal bruits. Extremities: Trace bilateral pedal edema. No clubbing or cyanosis Neurologically awake, alert, oriented x3 with well-coordinated movements. No focal deficits noted Skin: No rash or skin lesions. Psychiatric: Coperative. Nonsuicidal Musculoskeletal: No joint swelling or deformity. Normal range of motion. - Labs CBC & Chem 7: 05/26/23 09:15 05/26/23 09:15 Labs: Abnormal Lab Results - Last 24 Hours (Table) 05/24/23 05/24/23 05/25/23 Range/Units 20:21 22:58 07:18 RBC (3.80-5.40) m/uL RDW (11.5-15.5) % Plt Count (150-450) k/uL Potassium 3.1 L (3.5-5.1) mmol/L BUN 22 H 21 H (7-17) mg/dL Troponin I 0.062 H* (0.000-0.034) ng/mL 05/25/23 Range/Units 07:18 RBC 3.76 L (3.80-5.40) m/uL RDW 17.1 H (11.5-15.5) % Plt Count 96 L (150-450) k/uL Potassium (3.5-5.1) mmol/L BUN (7-17) mg/dL Troponin I (0.000-0.034) ng/mL Assessment and Plan Assessment: Significant cough with acute influenza A infection Chest pain along with elevated troponin level. Likely due to acute influenza A infection. Uncontrolled hypertension Coronary artery disease history of prior stent placement x 6 total Chronic CHF with systolic and diastolic dysfunction. Status post ICD placed in 2019 Persistent atrial fibrillation. Not on anticoagulation due to severe GI bleed previously. Hyperlipidemia History of DVT Osteoarthritis DVT prophylaxis heparin subcu GI prophylaxis with PPI Plan: Patient will be continued on telemetry. Follow-up serial EKG and troponin x 3. proBNP 3080. Will be started back on aspirin Plavix and atorvastatin Patient was started back on metoprolol and monitor blood pressure closely. Continue with Bumex as per home regimen. Also losartan was added. Symptomatic management for cough. Patient was also started on Tamiflu 30 mg daily x 5 doses Replace electrolytes. Cardiology is on board. 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 Prognosis guarded due to multiple medical problems and comorbid conditions. Discussed with patient family in detail at bedside. Time with Patient: Greater than 30
[2023-05-26] MEDS: POTASSIUM CHLORIDE ER 20 MEQ TAB.ER PO SCH (14:41)
[2023-05-26] MEDS: ALBUTEROL NEBULIZED 2.5 MG/3 ML INHALATION SCH (21:27)
--- NOTE | 2023-05-27 05:15 | P.PN ---
Subjective Progress Note Date: 05/26/23 Patient is a 87-year-old female with a known history of coronary artery disease with stent placement x 6 total, atrial fibrillation not on anticoagulation at home, history of DVT, hypertension, hyperlipidemia, history of KS and osteoarthritis chronic CHF, status post ICD placement in March 2019 presents to ER with complaints of chest pain. Patient states that she has been having flulike symptoms and significant cough for the past 2 days. Today morning she started having chest discomfort/pain and she woke up from sleep and has been consistent since then. EMS was called and patient was given nitro en route to the ER. Patient states that her pain seems to improve with nitro and was placed on nitro paste placed in the ER. Patient was having cough but without any sputum production.. Mild shortness of breath. No associated nausea or vomiting. No diaphoresis. No radiation of the pain. Denies any fever or chills. Patient does have chronic lower extremity swelling. Chest x-ray showed cardiomegaly correlate with serum BNP for congestive heart failure. Otherwise no acute process definitively visualized. EKG showed electronic ventricular pacemaker. Patient was found to have uncontrolled blood pressure on admission with SBP 168/86 and pulse 80 respiration 20 and pulse ox 100% on room air. Laboratory data showed sodium 140 potassium 3.2 chloride 105 bicarbonate 25 BUN 21 creatinine 1.04 Total bili 2.1 AST 51 ALT 18 alk phos 86 Troponin 0.043, 0.048 and 0.062 Influenza A detected. 05/26/2023 Patient is seen in follow-up today with cardiology following. Patient is continued on Tamiflu for positive influenza A. Patient reports to feeling slightly improved and continues with some shortness of breath. Patient currently using oxygen for comfort although 100% on 4 L. Wean FiO2 as tolerated. Discussed with nursing staff and patient report she would like to continue with oxygen as she feels improved. Will evaluate patient off oxygen and monitor closely. Encouraged to increase activity as tolerated. Patient denies any chest pain or palpitations. Patient is afebrile. Will monitor overnight with possible discharge planning in 24 hours. Continue current cardiac medications. Review of systems: Constitutional: No reports of fatigue, fever, or chills Cardiovascular: No reports of chest pain or palpitations Respiratory: No reports of worsening shortness of breath, occasional cough GI: No reports of nausea, vomiting, or diarrhea : No reports of dysuria or retention Neurovascular: No reports of weakness or numbness All medications have been reviewed PHYSICAL EXAMINATION: Patient is lying in the bed comfortably, no acute distress, awake alert and oriented.. Well-developed, appears elderly, obese HEENT: Normocephalic. Neck is supple. Pupils reactive. Nostrils clear. Oral cavity is moist. Neck reveals no JVD, carotid bruits, or thyromegaly. CHEST EXAMINATION: Trachea is central. Symmetrical expansion. Bibasilar diminished sounds. Faint expiratory wheezing noted. CARDIAC: Normal S1, S2 with no gallops. No murmurs ABDOMEN: Soft. Bowel sounds normal. No organomegaly. No abdominal bruits. Extremities: Bilateral lower extremity 2+ edema. Slightly improved from admission, no clubbing or cyanosis Neurologically awake, alert, oriented x3 with well-coordinated movements. No focal deficits noted Skin: No rash or skin lesions. Psychiatric: Cooperative. Non-suicidal Musculoskeletal: No joint swelling or deformity. Normal range of motion. Assessment: Acute influenza A infection Chest pain along with elevated troponin level. Possible NSTEMI Uncontrolled hypertension Coronary artery disease history of prior stent placement x 6 total Chronic CHF with likely systolic dysfunction. Status post ICD placed in 2019 Hyperlipidemia History of DVT Osteoarthritis Obesity with a BMI 31.1 DVT prophylaxis heparin subcu GI prophylaxis with PPI Full code Plan: Patient will be continued on telemetry. Follow-up serial EKG and troponin x 3. Continue aspirin Plavix and atorvastatin Home medications reviewed and resumed. Cardiology following and will continue Bumex twice daily Symptomatic management for cough. Patient was also started on Tamiflu 30 mg daily x 5 doses Encouraged to increase activity as tolerated Due to multiple complex medical issues, prognosis is guarded Possible discharge planning in the next 24 hours The impression and plan of care has been dictated by Shelly Gonzalez, Nurse Practitioner as directed. Dr. Torsten MD I have performed a history and examination and MDM of this patient, discussed the same with the dictator, and agree with the dictator's assessment and plan as written ,documented as a scribe. Based on total visit time, I have performed more than 50% of the visit. Objective - Vital Signs Vital signs: Vital Signs Temp 97.6 F 05/26/23 03:40 Pulse 80 05/26/23 08:00 Resp 20 05/26/23 08:00 BP 139/68 05/26/23 08:00 Pulse Ox 100 05/26/23 08:00 FiO2 Intake & Output 05/25/23 05/26/23 05/26/23 18:59 06:59 18:59 Intake Total 180 180 Balance 180 180 Weight 72.121 kg Intake: Oral 180 180 Other: Voiding Method Toilet Toilet # Voids 2 - Labs CBC & Chem 7: 05/26/23 09:15 05/26/23 09:15 Labs: Abnormal Lab Results - Last 24 Hours (Table) 05/25/23 05/26/23 Range/Units 07:18 09:15 Plt Count 96 L (150-450) k/uL Potassium 3.1 L (3.5-5.1) mmol/L BUN 24 H (7-17) mg/dL Creatinine 1.16 H (0.52-1.04) mg/dL Glucose 125 H (74-99) mg/dL
--- NOTE | 2023-05-27 09:50 | P.PN ---
Subjective HISTORY OF PRESENT ILLNESS: This is an 87-year-old female with past medical history of atrial fibrillation, bicuspid aortic valve, chronic systolic heart failure status post AICD 2019, history of myocardial infarction, coronary artery disease with previous stenting (7stents per patient), DVT, gastroesophageal reflux disease, hypertension, hyper lipidemia. Patient has follow-up with Dr. Byrne at [facility] but due to driving distance, she has made appointment with Dr. Geronimo on June 14. We have been asked to evaluate the patient for chest pain. On Wednesday, patient developed cough that was dry but it continued to worsen over the weekend and was significantly worse yesterday. She also did not feel right. She developed some nausea and dry heaves. She has chronic dyspnea on exertion which was worsened. She has right lower extremity edema. No dizziness, no palpitations, she states she had the chest pain just above the defibrillator. It seemed to be a different chest pain that she had with her previous IN/stents. No change in her pain with deep breathing or coughing. She states it was a steady ache but is gone now. She has had no fever. No blood in her stools or urine. No history of stroke or seizures. No history of diabetes. She is not a smoker. Patient is seen today in the emergency center waiting for bed on the cardiac stepdown unit. Patient has been started on Tamiflu, isolation and potassium has been replaced. EKG ventricularly paced rhythm, sinus rhythm Chest x-ray: Cardiomegaly correlate for CHF. Otherwise no acute process. Platelet count 109, WBC 5.1, hemoglobin 11.6. INR 1.3. Sodium 140, potassium 3.1, chloride 107, CO2 24, BUN 22 creatinine 1. Total bilirubin 2.1, AST 51, ALT and alkaline phosphatase normal. Magnesium 1.7. Troponin 0.043, 0.048, 0.062. Influenza A detected. Influenza B, RSV, COVID-19 not detected. Home cardiac medications: Aspirin 81 mg daily, atorvastatin 40 mg daily, Bumex 2 mg twice daily, Plavix 75 mg daily, losartan 50 mg daily, Toprol-XL 100 mg daily. 05/25 Reviewed documents obtained from [facility], Dr. Vivek Byrne. Patient has a past medical history of chronic systolic and diastolic heart failure with LVEF 40%, moderate mitral regurgitation, severe tricuspid regurgitation, status post ICD on 04/18/2019 for secondary prevention of SCD with long QT. ICD was complicated by pericardial tamponade, effusion was drained. She has history of persistent A-fib with [id number] of 5. History of severe GI bleeding on Coumadin. Patient has not been interested in LAAO. History of coronary artery disease with stenting of the LAD and RCA at [facility] in 2005 followed by stenting of the RCA at [facility] in 2012, stenting of the RCA, PTCA diagonal at [place] 08/21/2019. History of peripheral artery disease with CYNTHIA left SFA for nonhealing left calf ulcer 12/01/2019. Patient is seen today on the cardiac stepdown unit. She denies having any chest pain, no shortness of breath, no dizziness. She is complaining with cough and sputum production. Blood pressure 139 over 100% on 4 L nasal cannula. Repeat blood work today reveals BUN 24 creatinine 1.16, potassium 3.1, sodium 141. Echocardiogram reveals EF of 30 to 35%, moderate to severe mitral regurgitation, severe pulmonary hypertension, severe right ventricular dilation, moderate to severe tricuspid regurgitation. 05/27/2023 Patient examined this morning at the bedside. Patient is sitting up in the chair. Patient states that she did not sleep well overnight because the bed is uncomfortable. She reports shortness of breath this morning. Patient has diffuse expiratory wheezing. She initially refused her dose of Bumex this morning. She denies any chest pain or pressure. Vital signs are stable. PHYSICAL EXAM: VITAL SIGNS: Reviewed. GENERAL: Well-developed in no acute distress. NECK: Supple. No JVD or thyromegaly LUNGS: Respirations even and unlabored. Lungs with diffuse expiratory wheezing HEART: Regular rate and rhythm. S1 and S2 heard. + systolic murmur EXTREMITIES: Normal range of motion. No clubbing or cyanosis. Peripheral pulses intact. 2+ bilateral lower extremity edema with varicose veins noted. ASSESSMENT: Influenza A Acute on chronic heart failure with reduced EF Elevated troponin most likely due to influenza A History of coronary artery disease with previous stenting Ischemic cardiomyopathy Hypertension Hyperlipidemia Valvular heart disease with moderate to severe mitral regurgitation, moderate to severe tricuspid regurgitation Persistent atrial fibrillation History of severe GI bleeding on Coumadin Status post AICD Remote history of DVT Peripheral vascular disease PLAN: Continue current cardiac medications Discontinue oral Bumex. Begin IV Bumex 2 mg twice a day Daily weights, accurate take and output, and monitoring of kidney function Check BNP Obtain 2 view chest x-ray Further recommendations pending patient course Nurse practitioner note has been reviewed by physician. Signing provider agrees with the documented findings, assessment, and plan of care documented by [employer] as a scribe. Objective - Vital Signs Vital signs: Vital Signs Temp 97.7 F 05/27/23 07:45 Pulse 79 05/27/23 07:45 Resp 19 05/27/23 07:45 BP 157/77 05/27/23 07:45 Pulse Ox 100 05/27/23 07:45 FiO2 Intake & Output 05/26/23 05/27/23 05/27/23 18:59 06:59 18:59 Intake Total 540 Balance 540 Intake: Oral 540 Other: # Voids 3 - Labs CBC & Chem 7: 05/26/23 09:15 05/26/23 09:15 Labs: Abnormal Lab Results - Last 24 Hours (Table) 05/26/23 05/26/23 Range/Units 09:15 09:15 WBC 3.5 L (3.8-10.6) k/uL RBC 3.62 L (3.80-5.40) m/uL Hgb 11.0 L (11.4-16.0) gm/dL RDW 17.1 H (11.5-15.5) % Plt Count 89 L (150-450) k/uL Potassium 3.1 L (3.5-5.1) mmol/L BUN 24 H (7-17) mg/dL Creatinine 1.16 H (0.52-1.04) mg/dL Glucose 125 H (74-99) mg/dL
[2023-05-27] MEDS: BUMETANIDE 0.25 MG/ML 4 ML VIAL IVP SCH (11:48)
--- NOTE | 2023-05-27 11:53 | XR ---
EXAMINATION TYPE: XR chest 2V DATE OF EXAM: 05/27/2023 10:25 AM CLINICAL INDICATION:Female, 87 years old with history of SOB; COMPARISON: Chest radiographs from 05/24/2023. TECHNIQUE: XR chest 2V Frontal and lateral views of the chest. FINDINGS: Lungs/Pleura: There is no evidence of pleural effusion, focal consolidation, or pneumothorax. Pulmonary vascularity: Unremarkable. Heart/mediastinum: Cardiomediastinal silhouette is enlarged and stable. Atherosclerotic calcificatio ns are seen in the aorta. Three lead cardiac conduction device overlying the left hemithorax with dee dee d tips projecting over the right ventricle, right atrium and coronary sinus. Musculoskeletal: No acute osseous pathology. IMPRESSION: Cardiomegaly and mild pulmonary vascular congestion. Correlate with BNP for congestive heart failure.
[2023-05-27] MEDS: ALBUTEROL NEBULIZED 2.5 MG/3 ML INHALATION SCH (11:55)
[2023-05-27 12:00] LABS: BUN/Creat Ratio 19.23 Ratio (12.00-20.00); Calcium 9.2 mg/dL (8.7-10.3); Carbon Dioxide 24.5 mmol/L (21.6-31.8); Chloride 105 mmol/L (96-109); Glucose 93 mg/dL (70-110); Potassium 4.6 mmol/L (3.5-5.5); Sodium 143 mmol/L (135-145)
--- NOTE | 2023-05-27 15:17 | P.PN ---
Subjective Progress Note Date: 05/27/23 Patient is a 87-year-old female with a known history of coronary artery disease with stent placement x 6 total, atrial fibrillation not on anticoagulation at home, history of DVT, hypertension, hyperlipidemia, history of [place] and osteoarthritis chronic CHF, status post ICD placement in March 2019 presents to ER with complaints of chest pain. Patient states that she has been having flulike symptoms and significant cough for the past 2 days. Today morning she started having chest discomfort/pain and she woke up from sleep and has been consistent since then. EMS was called and patient was given nitro en route to the ER. Patient states that her pain seems to improve with nitro and was placed on nitro paste placed in the ER. Patient was having cough but without any sputum production.. Mild shortness of breath. No associated nausea or vomiting. No diaphoresis. No radiation of the pain. Denies any fever or chills. Patient does have chronic lower extremity swelling. Chest x-ray showed cardiomegaly correlate with serum BNP for congestive heart failure. Otherwise no acute process definitively visualized. EKG showed electronic ventricular pacemaker. Patient was found to have uncontrolled blood pressure on admission with SBP 168/86 and pulse 80 respiration 20 and pulse ox 100% on room air. Laboratory data showed sodium 140 potassium 3.2 chloride 105 bicarbonate 25 BUN 21 creatinine 1.04 Total bili 2.1 AST 51 ALT 18 alk phos 86 Troponin 0.043, 0.048 and 0.062 Influenza A detected. 05/26/2023 Patient is seen in follow-up today with cardiology following. Patient is continued on Tamiflu for positive influenza A. Patient reports to feeling slightly improved and continues with some shortness of breath. Patient currently using oxygen for comfort although 100% on 4 L. Wean FiO2 as tolerated. Discussed with nursing staff and patient report she would like to continue with oxygen as she feels improved. Will evaluate patient off oxygen and monitor closely. Encouraged to increase activity as tolerated. Patient denies any chest pain or palpitations. Patient is afebrile. Will monitor overnight with possible discharge planning in 24 hours. Continue current cardiac medications. 05/27/2023 Patient is seen in follow-up today with cardiology following and was continued o n oral Bumex although reporting increasing shortness of breath and having significant wheezing will be transition to IV Bumex per cardiology and BNP as ordered. Two-view chest x-ray also ordered for a.m. Patient continues on Tamiflu for influenza A infection and continues on 3 to 4 L via nasal cannula. Patient is requesting this although is 100% and reports it makes her feel better. Instructed nursing staff to evaluate on room air as well. Patient is afebrile with no reports of chest pain or palpitations. Patient reports to tolerating diet and recommend continue with fluid restrictions. Patient has been instructed to increase activity as tolerated and get up and walk around in the room more. Patient initially refused her morning dose of Bumex as she thought she was being discharged and has a long ride home and reported she would take it in the morning. Patient creatinine is 1.4 today and will follow-up with repeat labs in the a.m. to monitor kidney functions and electrolytes closely. Recommend replace electrolytes per protocol. Potassium is 4.6 today post replacement as potassium was 3.1 yesterday. Review of systems: Constitutional: No reports of fatigue, fever, or chills Cardiovascular: No reports of chest pain or palpitations Respiratory: reports of worsening shortness of breath today, occasional cough GI: No reports of nausea, vomiting, or diarrhea : No reports of dysuria or retention Neurovascular: No reports of weakness or numbness All medications have been reviewed PHYSICAL EXAMINATION: Patient is sitting up in the bed comfortably, no acute distress, awake alert and oriented.. Well-developed, appears elderly, obese HEENT: Normocephalic. Neck is supple. Pupils reactive. Nostrils clear. Oral cavity is moist. Neck reveals no JVD, carotid bruits, or thyromegaly. CHEST EXAMINATION: Trachea is central. Symmetrical expansion. Bibasilar diminished sounds. Faint expiratory wheezing noted. CARDIAC: Normal S1, S2 with no gallops. No murmurs ABDOMEN: Soft. Bowel sounds normal. No organomegaly. No abdominal bruits. Extremities: Bilateral lower extremity 1-2+ edema. Slightly improved from admission, no clubbing or cyanosis Neurologically awake, alert, oriented x3 with well-coordinated movements. No focal deficits noted Skin: No rash or skin lesions. Psychiatric: Cooperative. Non-suicidal Musculoskeletal: No joint swelling or deformity. Normal range of motion. Assessment: Acute influenza A infection Chest pain along with elevated troponin level. Possible NSTEMI Uncontrolled hypertension Coronary artery disease history of prior stent placement x 6 total Acute on chronic CHF exacerbation with systolic dysfunction. Status post ICD placed in 2019 Hyperlipidemia History of DVT Osteoarthritis Obesity with a BMI 31.1 DVT prophylaxis heparin subcu GI prophylaxis with PPI Full code Plan: Patient will be continued on telemetry. Follow-up serial EKG and troponin x 3. Continue aspirin Plavix and atorvastatin Home medications reviewed and resumed. Cardiology following and recommending placing the patient on IV Bumex and follow-up with BNP and repeat labs in the a.m. Symptomatic management for cough. Patient was also started on Tamiflu 30 mg daily x 5 doses. Patient with some wheezing initiated albuterol treatments although patient is refusing reports she feels suffocated. Will transition to albuterol inhaler and recommend a spacer as well Encouraged to increase activity as tolerated Due to multiple complex medical issues, prognosis is guarded The impression and plan of care has been dictated by Shelly Gonzalez, Nurse Practitioner as directed. Dr. Torsten MD I have performed a history and examination and MDM of this patient, discussed the same with the dictator, and agree with the dictator's assessment and plan as written ,documented as a scribe. Based on total visit time, I have performed more than 50% of the visit. Objective - Vital Signs Vital signs: Vital Signs Temp 97.7 F 05/27/23 07:45 Pulse 79 05/27/23 07:45 Resp 19 05/27/23 07:45 BP 157/77 05/27/23 07:45 Pulse Ox 100 05/27/23 07:45 FiO2 Intake & Output 05/26/23 05/27/23 05/27/23 18:59 06:59 18:59 Intake Total 540 Balance 540 Intake: Oral 540 Other: # Voids 3 - Labs CBC & Chem 7: 05/26/23 09:15 05/27/23 06:20 Labs: Abnormal Lab Results - Last 24 Hours (Table) 05/26/23 05/26/23 Range/Units 09:15 09:15 WBC 3.5 L (3.8-10.6) k/uL RBC 3.62 L (3.80-5.40) m/uL Hgb 11.0 L (11.4-16.0) gm/dL RDW 17.1 H (11.5-15.5) % Plt Count 89 L (150-450) k/uL Potassium 3.1 L (3.5-5.1) mmol/L BUN 24 H (7-17) mg/dL Creatinine 1.16 H (0.52-1.04) mg/dL Glucose 125 H (74-99) mg/dL
[2023-05-27] MEDS: ALBUTEROL HFA INHALER INHALATION SCH (20:30)
[2023-05-28 01:14] VITALS: RESP 18
[2023-05-28 09:07] LABS: African American GFR (CKD) 46 (>60 ml/min/1.73 sqM); Anion Gap 10 mmol/L; Blood Urea Nitrogen 27 mg/dL (7-17); Carbon Dioxide 26 mmol/L (22-30); Chloride 105 mmol/L (98-107); Glucose 77 mg/dL (74-99); Non-African American GFR(CKD) 40 (>60 ml/min/1.73 sqM); Sodium 141 mmol/L (137-145)
[2023-05-28 09:10] LABS: Anisocytosis Slight; Basophils # (A) 0.1 k/uL (0-0.2); Basophils % (A) 1 %; Eosinophils # (A) 0.1 k/uL (0-0.7); Eosinophils % (A) 3 %; HCT 35.4 % (34.0-46.0); HGB 11.2 gm/dL (11.4-16.0); Hypochromasia Slight; Lymphocytes # (A) 1.6 k/uL (1.0-4.8); Lymphocytes % (A) 35 %; MCH 29.5 pg (25.0-35.0); MCHC 31.7 g/dL (31.0-37.0); MCV 93.1 fL (80.0-100.0); Mean Platelet Volume 10.6; Monocytes # (A) 0.6 k/uL (0-1.0); Monocytes % (A) 14 %; Neutrophils # (A) 1.9 k/uL (1.3-7.7); Neutrophils % (A) 43 %; Platelet Count 111 k/uL (150-450); RDW 17.2 % (11.5-15.5); WBC 4.5 k/uL (3.8-10.6)
--- NOTE | 2023-05-28 12:05 | P.PN ---
Subjective HISTORY OF PRESENT ILLNESS: This is an 87-year-old female with past medical history of atrial fibrillation, bicuspid aortic valve, chronic systolic heart failure status post AICD 2019, history of myocardial infarction, coronary artery disease with previous stenting (7stents per patient), DVT, gastroesophageal reflux disease, hypertension, hyper lipidemia. Patient has follow-up with Dr. Byrne at [facility] but due to driving distance, she has made appointment with Dr. Geronimo on June 14. We have been asked to evaluate the patient for chest pain. On Wednesday, patient developed cough that was dry but it continued to worsen over the weekend and was significantly worse yesterday. She also did not feel right. She developed some nausea and dry heaves. She has chronic dyspnea on exertion which was worsened. She has right lower extremity edema. No dizziness, no palpitations, she states she had the chest pain just above the defibrillator. It seemed to be a different chest pain that she had with her previous TN/stents. No change in her pain with deep breathing or coughing. She states it was a steady ache but is gone now. She has had no fever. No blood in her stools or urine. No history of stroke or seizures. No history of diabetes. She is not a smoker. Patient is seen today in the emergency center waiting for bed on the cardiac stepdown unit. Patient has been started on Tamiflu, isolation and potassium has been replaced. EKG ventricularly paced rhythm, sinus rhythm Chest x-ray: Cardiomegaly correlate for CHF. Otherwise no acute process. Platelet count 109, WBC 5.1, hemoglobin 11.6. INR 1.3. Sodium 140, potassium 3.1, chloride 107, CO2 24, BUN 22 creatinine 1. Total bilirubin 2.1, AST 51, ALT and alkaline phosphatase normal. Magnesium 1.7. Troponin 0.043, 0.048, 0.062. Influenza A detected. Influenza B, RSV, COVID-19 not detected. Home cardiac medications: Aspirin 81 mg daily, atorvastatin 40 mg daily, Bumex 2 mg twice daily, Plavix 75 mg daily, losartan 50 mg daily, Toprol-XL 100 mg daily. 05/25 Reviewed documents obtained from [facility], Dr. Vivek Byrne. Patient has a past medical history of chronic systolic and diastolic heart failure with LVEF 40%, moderate mitral regurgitation, severe tricuspid regurgitation, status post ICD on 04/18/2019 for secondary prevention of SCD with long QT. ICD was complicated by pericardial tamponade, effusion was drained. She has history of persistent A-fib with [id number] of 5. History of severe GI bleeding on Coumadin. Patient has not been interested in LAAO. History of coronary artery disease with stenting of the LAD and RCA at [facility] in 2005 followed by stenting of the RCA at [facility] in 2012, stenting of the RCA, PTCA diagonal at [place] 08/21/2019. History of peripheral artery disease with CYNTHIA left SFA for nonhealing left calf ulcer 12/01/2019. Patient is seen today on the cardiac stepdown unit. She denies having any chest pain, no shortness of breath, no dizziness. She is complaining with cough and sputum production. Blood pressure 139 over 100% on 4 L nasal cannula. Repeat blood work today reveals BUN 24 creatinine 1.16, potassium 3.1, sodium 141. Echocardiogram reveals EF of 30 to 35%, moderate to severe mitral regurgitation, severe pulmonary hypertension, severe right ventricular dilation, moderate to severe tricuspid regurgitation. 05/27/2023 Patient examined this morning at the bedside. Patient is sitting up in the chair. Patient states that she did not sleep well overnight because the bed is uncomfortable. She reports shortness of breath this morning. Patient has diffuse expiratory wheezing. She initially refused her dose of Bumex this morning. She denies any chest pain or pressure. Vital signs are stable. 05/28/2023 Patient examined this morning at the bedside. Patient states her shortness of breath has significantly improved. She denies chest pain or pressure. She remains on IV Bumex. Vital signs are stable. PHYSICAL EXAM: VITAL SIGNS: Reviewed. GENERAL: Well-developed in no acute distress. NECK: Supple. No JVD or thyromegaly LUNGS: Respirations even and unlabored. Lungs with diffuse expiratory wheezing HEART: Regular rate and rhythm. S1 and S2 heard. + systolic murmur EXTREMITIES: Normal range of motion. No clubbing or cyanosis. Peripheral pulses intact. 2+ bilateral lower extremity edema with varicose veins noted. ASSESSMENT: Influenza A Acute on chronic heart failure with reduced EF Elevated troponin most likely due to influenza A History of coronary artery disease with previous stenting Ischemic cardiomyopathy Hypertension Hyperlipidemia Valvular heart disease with moderate to severe mitral regurgitation, moderate to severe tricuspid regurgitation Persistent atrial fibrillation History of severe GI bleeding on Coumadin Status post AICD Remote history of DVT Peripheral vascular disease PLAN: Continue current cardiac medications Patient may be discharged home today from a cardiac standpoint She is to resume her home dose of Bumex upon discharge We will sign off. Please reconsult if needed. Nurse practitioner note has been reviewed by physician. Signing provider agrees with the documented findings, assessment, and plan of care documented by [employer] INSPECTOR as a scribe. Objective - Vital Signs Vital signs: Vital Signs Temp 97.8 F 05/28/23 07:59 Pulse 80 05/28/23 07:59 Resp 18 05/28/23 07:59 BP 150/71 05/28/23 07:59 Pulse Ox 99 05/28/23 07:59 FiO2 Intake & Output 05/27/23 05/28/23 05/28/23 18:59 06:59 18:59 Intake Total 540 Output Total 400 100 Balance 140 -100 Weight 71.9 kg Intake: Oral 540 Output: Urine 400 100 Other: Voiding Method Toilet # Voids 4 2 - Labs CBC & Chem 7: 05/28/23 08:05 05/28/23 08:05 Labs: Abnormal Lab Results - Last 24 Hours (Table) 05/27/23 05/28/23 05/28/23 Range/Units 06:20 08:05 08:05 Hgb 11.2 L (11.4-16.0) gm/dL RDW 17.2 H (11.5-15.5) % Plt Count 111 L (150-450) k/uL BUN 27 H (7-17) mg/dL Creatinine 1.22 H (0.52-1.04) mg/dL NT-Pro-B Natriuret Pep 8135 H (0-450) pg/mL
[2023-05-28 16:35] VITALS: BP 115/59; PULSE 79; TEMP 98.2
[2023-05-28] MEDS ORDERED: BUMETANIDE 1 MG TAB PO SCH (21:00)
--- NOTE | 2023-05-30 13:00 | P.DS ---
Providers Date of admission: 05/26/23 08:31 Expected date of discharge: 05/28/23 Attending physician: Toy Sarmiento Primary care physician: Kendall Riddle Hospital Course: Final diagnosis Acute influenza A infection Chest pain along with elevated troponin level. NSTEMI, type II related to acute CHF exacerbation as well as acute influenza A infection Uncontrolled hypertension, on admission, improved Coronary artery disease history of prior stent placement x 6 total Acute on chronic CHF exacerbation with systolic dysfunction. Status post ICD placed in 2019 Hyperlipidemia History of DVT Osteoarthritis Obesity with a BMI 31.1 DVT prophylaxis heparin subcu GI prophylaxis with PPI Full code Discharge disposition Patient is being discharged in a stable condition with guarded prognosis to home. Patient will follow-up with Dr. Riddle in the outpatient setting upon discharge. Patient is to continue with daily Bumex and close outpatient follow- up with cardiology as scheduled. Patient has an established appointment with Dr. Geronimo in June as her current law office assistant is out of [place] although this is too far for her to travel. Total time taken is greater than 35 minutes. Hospital course This is a 87-year-old female who was recently admitted with acute CHF exacerbation along with chest pain and elevated troponin levels, likely related to acute influenza A infection as well as CHF exacerbation. Patient was started on IV Bumex with cardiology following making adjustments to medications including blood pressure medications. Patient follows with law office assistant out of [facility] although too far to travel currently working on obtaining a law office assistant [facility]. Patient has an appointment with Dr. Geronimo beginning of June. Patient will continue on daily dose of Bumex 2 mg and close outpatient follow-up with labs. Patient has been cleared by consultations for discharge. Please refer to consultation note for further HPI. Patient reports to feeling improved and would like to go home. Currently no reports of chest pain, no worsening shortness of breath, or palpitations. Patient is afebrile. No reports of nausea or vomiting and patient is tolerating diet. Patient will be discharged home today. High risk for readmission given patient's significant comorbidities. Physical exam: Gen: This is a 87-year-old female who is awake, alert and oriented x 3, well- developed, well-nourished, obese HEENT: Head is atraumatic, normocephalic. Pupils equal, round. Sclerae is anicteric. NECK: Supple. No JVD. No lymphadenopathy. No thyromegaly. LUNGS: Diminished breath sounds bilaterally otherwise clear to auscultation. No wheezes or rhonchi. No intercostal retractions. HEART: S1, S2 are muffled ABDOMEN: Soft. Obese bowel sounds are present. No masses. No tenderness. EXTREMITIES: No pedal edema. No calf tenderness. Generalized edema noted bilaterally nonpitting NEUROLOGICAL: Patient is awake, alert and oriented x3. Cranial nerves 2 through 12 are grossly intact. Please refer to medication reconciliation sheet for a list of medications. The impression and plan of care has been dictated by Shelly Gonzalez, Nurse Practitioner as directed. Dr. Sapna MD I have performed a history and examination and MDM of this patient, discussed the same with the dictator, and agree with the dictator's assessment and plan as written ,documented as a scribe. Based on total visit time, I have performed more than 50% of the visit. Patient Condition at Discharge: Fair Plan - Discharge Summary Discharge Rx Participant: No New Discharge Prescriptions: New Acetaminophen Tab [Tylenol] 650 mg PO Q4HR PRN tab PRN Reason: Fever And/ Or Pain Albuterol Inhaler [Ventolin Hfa Inhaler] 1 puff INHALATION RT-TID 30 Days #1 each guaiFENesin SYRUP 100MG/5ML [Robitussin] 200 mg PO Q6HR PRN #120 ml PRN Reason: Cough Continue Cetirizine HCl [Zyrtec] 10 mg PO DAILY PRN PRN Reason: itchiness Metoprolol Succinate [Toprol XL] 100 mg PO DAILY Losartan Potassium [Cozaar] 50 mg PO DAILY Clopidogrel [Plavix] 75 mg PO DAILY Atorvastatin [Lipitor] 40 mg PO DAILY Omeprazole [PriLOSEC] 40 mg PO BID Ferrous Sulfate [Feosol] 325 mg PO DAILY Aspirin 81 mg PO DAILY Bumetanide [BUMEX] 2 mg PO BID Calcium Carbonate [Calcium] 600 mg PO DAILY Loratadine [Claritin] 10 mg PO DAILY PRN PRN Reason: Allergy Symptoms Discharge Medication List Aspirin 81 mg PO DAILY 10/11/19 [History] Atorvastatin [Lipitor] 40 mg PO DAILY 10/11/19 [History] Cetirizine HCl [Zyrtec] 10 mg PO DAILY PRN 10/11/19 [History] Clopidogrel [Plavix] 75 mg PO DAILY 10/11/19 [History] Ferrous Sulfate [Feosol] 325 mg PO DAILY 10/11/19 [History] Losartan Potassium [Cozaar] 50 mg PO DAILY 10/11/19 [History] Metoprolol Succinate [Toprol XL] 100 mg PO DAILY 10/11/19 [History] Omeprazole [PriLOSEC] 40 mg PO BID 10/11/19 [History] Bumetanide [BUMEX] 2 mg PO BID 11/10/22 [History] Calcium Carbonate [Calcium] 600 mg PO DAILY 11/10/22 [History] Loratadine [Claritin] 10 mg PO DAILY PRN 05/24/23 [History] Acetaminophen Tab [Tylenol] 650 mg PO Q4HR PRN tab 05/28/23 [Rx] Albuterol Inhaler [Ventolin Hfa Inhaler] 1 puff INHALATION RT-TID 30 Days #1 each 05/28/23 [Rx] guaiFENesin SYRUP 100MG/5ML [Robitussin] 200 mg PO Q6HR PRN #120 ml 05/28/23 [Rx] Follow up Appointment(s)/Referral(s): Kendall Riddle MD [Primary Care Provider] - 1-2 days Krish Geronimo MD [STAFF PHYSICIAN] - 1 Week (Follow-up at your scheduled appointment) Activity/Diet/Wound Care/Special Instructions: Activity limited until follow-up Follow-up with primary care provider on discharge Follow-up cardiology outpatient as scheduled continue taking medications as prescribed Discharge Disposition: HOME SELF-CARE
== END 2023-05-28 15:18 | disposition home or self-care (01) | DRG 280 ==
LOC: EC 12:49 → 3SCARD 15:21 → OBSVTOIN 05-26 08:31 → 4SSUR 05-26 22:39
PROVIDERS: ADMIT Internal Medicine; ATTEND Internal Medicine
DX: I11.0 Hypertensive heart disease with heart failure (principal); I21.A1 Myocardial infarction type 2; I50.43 Acute on chronic combined systolic (congestive) and diastolic (congestive) heart failure; I48.19 Other persistent atrial fibrillation; I25.10 Atherosclerotic heart disease of native coronary artery without angina pectoris; I25.2 Old myocardial infarction; Z95.1 Presence of aortocoronary bypass graft; E66.9 Obesity, unspecified; I27.20 Pulmonary hypertension, unspecified; I73.9 Peripheral vascular disease, unspecified; M19.90 Unspecified osteoarthritis, unspecified site; Z68.31 Body mass index [BMI] 31.0-31.9, adult; I08.1 Rheumatic disorders of both mitral and tricuspid valves; E78.5 Hyperlipidemia, unspecified; J10.89 Influenza due to other identified influenza virus with other manifestations; K21.9 Gastro-esophageal reflux disease without esophagitis; I25.5 Ischemic cardiomyopathy; Z79.82 Long term (current) use of aspirin; Z79.02 Long term (current) use of antithrombotics/antiplatelets; Z79.899 Other long term (current) drug therapy; Z88.1 Allergy status to other antibiotic agents; Z88.5 Allergy status to narcotic agent; Z88.2 Allergy status to sulfonamides; Z88.8 Allergy status to other drugs, medicaments and biological substances; Z28.311 Partially vaccinated for COVID-19; Z11.52 Encounter for screening for COVID-19; Z86.718 Personal history of other venous thrombosis and embolism; Z95.810 Presence of automatic (implantable) cardiac defibrillator; Z82.49 Family history of ischemic heart disease and other diseases of the circulatory system; Z95.5 Presence of coronary angioplasty implant and graft; Z87.19 Personal history of other diseases of the digestive system
CPT/HCPCS: 36415; 71046; 80048; 80053; 80061; 83735; 83880; 84484; 85025; 85610; 85730; 87636; 93005; 93306; 94640; 99285